=== PATIENT | female | born 1940 ===

== ENCOUNTER 2016-10-12 16:47 | Inpatient (IN) | payer MEDICARE ==
[2016-10-12] MEDS ORDERED: RX INFO: IV CONTRAST WAS GIVEN 1 EACH MISC MISCELLANE PRN (17:53)
[2016-10-12] MEDS ORDERED: methylPREDNISolone SOD SUCCI 125 MG/2 ML VIAL IV STA ×2 (17:53→19:57)
[2016-10-12] MEDS ORDERED: AZITHROMYCIN 500 MG in SODIUM CHLORIDE 0.9% 250 ML IVPB STA (17:55)
[2016-10-12] MEDS ORDERED: cefTRIAXone 2,000 MG in SODIUM CHLORIDE 0.9% 100 ML IVPB STA (17:55)
[2016-10-12 18:26] LABS: Basophils % (A) 0 %; CH 28.3; CHCM 31.7; Eosinophils % (A) 0 %; HCT 33.1 % (34.0-46.0); HGB 10.4 gm/dL (11.4-16.0); Luc # (Auto) 0.23; Luc % (Auto) 2; Lymphocytes # (A) 0.4 k/uL (1.0-4.8); Lymphocytes % (A) 3 %; MCH 28.2 pg (25.0-35.0); MCHC 31.5 g/dL (31.0-37.0); MCV 89.5 fL (80.0-100.0); Mean Platelet Volume 6.3; Monocytes # (A) 0.5 k/uL (0-1.0); Monocytes % (A) 3 %; Neutrophils # (A) 13.3 k/uL (1.3-7.7); Neutrophils % (A) 92 %; RDW 15.3 % (11.5-15.5); WBC 14.5 k/uL (3.8-10.6); WBC (Perox) 15.31
[2016-10-12 18:34] LABS: Anion Gap 12 mmol/L; Blood Urea Nitrogen 15 mg/dL (7-17); Calcium 9.7 mg/dL (8.4-10.2); Carbon Dioxide 25 mmol/L (22-30); Chloride 99 mmol/L (98-107); Glucose 107 mg/dL (74-99); Non-African American GFR(MDRD) >60 (>60 ml/min/1.73 sqM); Potassium 4.5 mmol/L (3.5-5.1); Sodium 136 mmol/L (137-145)
--- NOTE | 2016-10-12 19:49 | ED ---
URI HPI - General Chief Complaint: Upper Respiratory Infection Stated Complaint: cough, chest congestion Time Seen by Provider: 10/12/16 17:42 Source: patient Mode of arrival: wheelchair Limitations: no limitations - History of Present Illness Initial Comments: She has a history of lung cancer, she status post chemo and now radiation she was here yesterday stating that she has a fever been now she went home and called her doctor Dr. Taya Bain's office or history*practitioner 12 come to the ER she stated she been having a fever for the last few days off and on though her temperature here was normal is also check for the flu a and B yesterday which was negative she is not on any antibiotics right now according to the patient , no chest pain no pleuritic chest pain - Related Data Home Medications Medication Instructions Recorded Confirmed ALPRAZolam [Alprazolam] 0.5 mg PO TID PRN 04/21/16 10/12/16 Acetaminophen with Codeine 1 tab PO Q4-6H PRN 04/21/16 10/12/16 [Acetaminophen-Cod #3 Tablet] D-Methorphan/Acetamin/Doxylamn 15 - 30 ml PO Q4H PRN 10/12/16 10/12/16 [Vicks Nyquil Cold & Flu Liquid] Ibuprofen [Motrin] 200 - 400 mg PO Q6HR PRN 10/12/16 10/12/16 Oseltamivir [Tamiflu] 75 mg PO DAILY 10/12/16 10/12/16 Phenylephrine/Dm/Acetaminop/GG 15 - 30 ml PO Q4H PRN 10/12/16 10/12/16 [Vicks Dayquil Severe Cold-Flu] Allergies Allergy/AdvReac Type Severity Reaction Status Date / Time morphine AdvReac Hallucinati Verified 10/12/16 17:22 ons Review of Systems ROS Statement: Those systems with pertinent positive or pertinent negative responses have been documented in the HPI. ROS Other: All systems not noted in ROS Statement are negative. Past Medical History Past Medical History: Cancer Additional Past Medical History / Comment(s): Non-small cell lung cancer, metastatic post chemotherapy/radiation, completed end February 2015 chemotherapy end February 2016 History of Any Multi-Drug Resistant Organisms: None Reported Past Surgical History: Appendectomy, Hysterectomy, Tonsillectomy Additional Past Surgical History / Comment(s): bilateral masectomy Past Anesthesia/Blood Transfusion Reactions: No Reported Reaction Past Psychological History: Anxiety, Depression Additional Psychological History / Comment(s): r/t new diagnosis Smoking Status: Former smoker Past Alcohol Use History: None Reported Past Drug Use History: None Reported - Past Family History Father Additional Family Medical History / Comment(s): pacemaker triple bypass Mother Family Medical History: Cancer Additional Family Medical History / Comment(s): cervical and breast Daughter(s) Family Medical History: Cancer (thyroid cancer) Additional Family Medical History / Comment(s): cervicle cancer General Exam Limitations: no limitations Course Vital Signs 10/12/16 10/12/16 17:06 19:55 Temperature 98.8 F Pulse Rate 103 H 82 Respiratory 26 H 18 Rate Blood Pressure 128/69 122/58 O2 Sat by Pulse 95 96 Oximetry Medical Decision Making - Lab Data Result diagrams: 10/12/16 17:35 10/12/16 17:35 Lab Results 10/12/16 10/12/16 10/12/16 Range/Units 17:35 17:35 17:35 WBC 14.5 H (3.8-10.6) k/uL RBC 3.70 L (3.80-5.40) m/uL Hgb 10.4 L (11.4-16.0) gm/dL Hct 33.1 L (34.0-46.0) % MCV 89.5 (80.0-100.0) fL MCH 28.2 (25.0-35.0) pg MCHC 31.5 (31.0-37.0) g/dL RDW 15.3 (11.5-15.5) % Plt Count 429 (150-450) k/uL Neutrophils % 92 % Lymphocytes % 3 % Monocytes % 3 % Eosinophils % 0 % Basophils % 0 % Neutrophils # 13.3 H (1.3-7.7) k/uL Lymphocytes # 0.4 L (1.0-4.8) k/uL Monocytes # 0.5 (0-1.0) k/uL Eosinophils # 0.0 (0-0.7) k/uL Basophils # 0.0 (0-0.2) k/uL Sodium 136 L (137-145) mmol/L Potassium 4.5 (3.5-5.1) mmol/L Chloride 99 (98-107) mmol/L Carbon Dioxide 25 (22-30) mmol/L Anion Gap 12 mmol/L BUN 15 (7-17) mg/dL Creatinine 0.67 (0.52-1.04) mg/dL Est GFR (MDRD) Af Amer >60 (>60 ml/min/1.73 sqM) Est GFR (MDRD) Non-Af >60 (>60 ml/min/1.73 sqM) Glucose 107 H (74-99) mg/dL Plasma Lactic Acid Ralf (0.7-2.0) mmol/L Calcium 9.7 (8.4-10.2) mg/dL Influenza Type A RNA Not Detected (Not Detectd) Influenza Type B (PCR) Not Detected (Not Detectd) 10/12/16 Range/Units 17:35 WBC (3.8-10.6) k/uL RBC (3.80-5.40) m/uL Hgb (11.4-16.0) gm/dL Hct (34.0-46.0) % MCV (80.0-100.0) fL MCH (25.0-35.0) pg MCHC (31.0-37.0) g/dL RDW (11.5-15.5) % Plt Count (150-450) k/uL Neutrophils % % Lymphocytes % % Monocytes % % Eosinophils % % Basophils % % Neutrophils # (1.3-7.7) k/uL Lymphocytes # (1.0-4.8) k/uL Monocytes # (0-1.0) k/uL Eosinophils # (0-0.7) k/uL Basophils # (0-0.2) k/uL Sodium (137-145) mmol/L Potassium (3.5-5.1) mmol/L Chloride (98-107) mmol/L Carbon Dioxide (22-30) mmol/L Anion Gap mmol/L BUN (7-17) mg/dL Creatinine (0.52-1.04) mg/dL Est GFR (MDRD) Af Amer (>60 ml/min/1.73 sqM) Est GFR (MDRD) Non-Af (>60 ml/min/1.73 sqM) Glucose (74-99) mg/dL Plasma Lactic Acid Ralf 1.6 (0.7-2.0) mmol/L Calcium (8.4-10.2) mg/dL Influenza Type A RNA (Not Detectd) Influenza Type B (PCR) (Not Detectd) Disposition Clinical Impression: Fever, History of lung cancer Disposition: ADMITTED IP TO THIS HOSP Condition: Critical Referrals: Nnamdi Tam MD [Primary Care Provider] - 1-2 days
[2016-10-12] MEDS ORDERED: ACET/COD 300 MG/30 MG STARTER PACK 6 TAB BTL PO PRN (20:02)
--- NOTE | 2016-10-12 20:28 | CT ---
EXAMINATION TYPE: CT angio chest DATE OF EXAM: 10/12/2016 7:31 PM COMPARISON: Noncontrast CT Chest April 22, 2016 HISTORY: Shortness of breath and chest discomfort. History of lung cancer CT DLP: 136.1 mGycm Automated exposure control for dose reduction was used. CONTRAST: CTA scan of the thorax is performed with IV Contrast, patient injected with 100 mL of Omnipaque 350, pulmonary embolism protocol. . FINDINGS: The pulmonary arterial tree is widely patent without evidence of pulmonary embolism. Cavitary lesion in the right upper lobe is redemonstrated, most compatible with patient's history of lung carcinoma. There is bronchial wall thickening at the right hilum and extending towards the right upper lobe. Multiple pulmonary nodules are present in the left lower lobe, all have increased in vol ume by approximately 15% since the CT of April 2016. The other bilateral pulmonary nodules seen on t he prior study are similar in volume, and there are no definite new nodules. However, there is consolidation throughout the posterior segment of the right upper lobe with air bro nchograms, consistent with pneumonia - likely postobstructive pneumonia. Interstitial prominence is redemonstrated and has advanced, suggesting interstitial spread of carcino ma. There are coronary artery calcifications. Aorta has normal appearance. Right-sided pleural effusion is similar to the prior CT, as is the small pericardial effusion seen at that time. Left adrenal gland shows unchanged mild fullness. No focal skeletal lesions. IMPRESSION: 1. RIGHT UPPER LOBE POSTOBSTRUCTIVE PNEUMONIA. 2. NEGATIVE FOR PULMONARY EMBOLISM. 3. ADVANCING PRIMARY AND METASTATIC NEOPLASM.
[2016-10-12] MEDS: IPRATROPIUM-ALBUTEROL 3 ML NEB INHALATION PRN (20:37)
[2016-10-12] MEDS: BUDESONIDE 0.5 MG/2 ML NEBU INHALATION SCH (20:37)
[2016-10-12 22:39] VITALS: BMI 20.7
[2016-10-12] MEDS ORDERED: IV VANCOMYCIN PER PHARMACY 1 EACH MISC MISCELLANE PRN (22:52)
[2016-10-12] MEDS: ZOLPIDEM 5 MG TAB PO SCH (23:05)
[2016-10-12] MEDS: Acetaminophen-Codeine 300-30mg TAB PO PRN (23:37)
[2016-10-12] MEDS: PIPERACILLIN-TAZOBACTAM 3.375 GM in DEXTROSE/WATER 1 50ML.BAG IVPB SCH (23:55)
[2016-10-13] MEDS ORDERED: VANCOMYCIN 1,000 MG in SODIUM CHLORIDE 0.9% 250 ML IVPB SCH (04:00)
[2016-10-13] MEDS: BUDESONIDE 0.5 MG/2 ML NEBU INHALATION SCH ×2 (08:25→19:56)
[2016-10-13] MEDS: IPRATROPIUM-ALBUTEROL 3 ML NEB INHALATION PRN ×3 (08:25→19:56)
[2016-10-13] MEDS: PIPERACILLIN-TAZOBACTAM 3.375 GM in DEXTROSE/WATER 1 50ML.BAG IVPB SCH ×2 (08:35→17:21)
[2016-10-13] MEDS: DOCUSATE 100 MG CAP PO SCH ×2 (08:36→20:38)
[2016-10-13] MEDS: Acetaminophen-Codeine 300-30mg TAB PO PRN ×2 (08:42→19:35)
[2016-10-13 08:47] VITALS: RESP 16
[2016-10-13] MEDS ORDERED: OSELTAMIVIR 75 MG CAP PO SCH (09:00)
[2016-10-13] MEDS: ENOXAPARIN 30 MG/0.3 ML SYRINGE SQ SCH (09:29)
--- NOTE | 2016-10-13 14:13 | P.CNPUL ---
History of Present Illness Consult date: 10/13/16 Requesting physician: Salvador Holt Reason for consult: abnormal CXR/CT (Right upper lobe postobstructive pneumonia) Chief complaint: Fever, cough congestion History of present illness: This is a very pleasant 76-year-old female patient with a known history of previously diagnosed non-small cell lung cancer. This was initially diagnosed in October 2015 after being found to have a right upper lobe perihilar mass extending to the hilum encasing the right upper lobe bronchus. She had undergone bronchoscopy and biopsy by Dr. Cordova that did reveal adenocarcinoma. She was referred to Dr. Issac arias at [facility] but was deemed not a surgical candidate. She follows with Dr. Bain in this regard she is status post chemotherapy and 2 sessions of radiation. She is EGFR/ALK/ RES 1 mutation negative. Previous MRI showed no metastatic disease to the brain. Approximately 3 months ago follow-up CT scans revealed worsening metastatic disease in the lungs. She was subsequently started on Opdivo ( nivolumab) which she receives every other Sunday. She's had 7 sessions thus far and is due for an eighth session next week. She had been tolerating this quite well until recently. She developed fever, cough and congestion. She was seen at Dr. Bain's office on Sunday and was treated with a Z-Lenny and steroids. Unfortunately her temperature was up to 101.5 and she presented here to the emergency room yesterday. Her influenza screen was negative. She had been initiated on Tamiflu in the outpatient setting. She is currently afebrile. White count 14.5. He is maintaining good O2 saturations in the upper 90s on room air. CT angiogram ruled out pulmonary embolism. There was noted right upper lobe postobstructive pneumonia. There is also noted advancing primary and metastatic neoplasm. She is seen today 10/13/2016 in consultation on the regular medical floor. She is awake and alert in no acute distress. She states she is feeling quite a bit better today as compared to yesterday. She continues with a dry loose nonproductive cough. No fever, no chills or night sweats. Her appetite is good. No nausea, vomiting diarrhea. Review of Systems 14 point review of system was conducted. All negative other than as mentioned in the HPI. Past Medical History Past Medical History: Cancer, Pneumonia Additional Past Medical History / Comment(s): Non-small cell lung cancer, metastatic post chemotherapy/radiation, completed end of february 2015 chemotherapy end of february 2016,viral infection, radiation killed lung tissue and abscesses and infected right lung, right lung pneumothorax, breast cancer,was on tivo( cancer) History of Any Multi-Drug Resistant Organisms: None Reported Past Surgical History: Appendectomy, Hysterectomy, Tonsillectomy Additional Past Surgical History / Comment(s): bilateral masectomy Past Anesthesia/Blood Transfusion Reactions: No Reported Reaction Past Psychological History: Anxiety, Depression Additional Psychological History / Comment(s): r/t new diagnosis Smoking Status: Former smoker Past Alcohol Use History: None Reported Past Drug Use History: None Reported - Past Family History Father Additional Family Medical History / Comment(s): pacemaker triple bypass Mother Family Medical History: Cancer Additional Family Medical History / Comment(s): cervical and breast Daughter(s) Family Medical History: Cancer Additional Family Medical History / Comment(s): cervicle cancer Medications and Allergies Home Medications Medication Instructions Recorded Confirmed Type ALPRAZolam [Alprazolam] 0.5 mg PO TID PRN 04/21/16 10/12/16 History Acetaminophen with Codeine 1 tab PO Q4-6H PRN 04/21/16 10/12/16 History [Acetaminophen-Cod #3 Tablet] D-Methorphan/Acetamin/Doxylamn 15 - 30 ml PO Q4H PRN 10/12/16 10/12/16 History [Vicks Nyquil Cold & Flu Liquid] Ibuprofen [Motrin] 200 - 400 mg PO Q6HR PRN 10/12/16 10/12/16 History Oseltamivir [Tamiflu] 75 mg PO DAILY 10/12/16 10/12/16 History Phenylephrine/Dm/Acetaminop/GG 15 - 30 ml PO Q4H PRN 10/12/16 10/12/16 History [Vicks Dayquil Severe Cold-Flu] Allergies Allergy/AdvReac Type Severity Reaction Status Date / Time morphine AdvReac Hallucinati Verified 10/12/16 22:06 ons Physical Exam Vitals: Vital Signs Temp Pulse Pulse Resp BP BP Pulse Ox 10/13/16 12:49 90 10/13/16 12:39 94 10/13/16 08:38 88 10/13/16 08:25 88 10/13/16 07:00 97.8 F 116 H 16 128/75 97 10/12/16 21:41 97.9 F 107 H 20 168/79 97 10/12/16 20:47 96 10/12/16 20:46 20 10/12/16 20:43 98.7 F 10/12/16 20:37 96 10/12/16 20:36 88 18 137/67 96 Intake and Output 10/12/16 10/13/16 10/13/16 22:59 06:59 14:59 Intake Total 900 Balance 900 Intake: IV 550 Azithromycin 500 mg In 250 Sodium Chloride 0.9% 250 ml @ 125 mls/hr IVPB ONCE [facility] Rx#:[id number] Piperacillin-Tazobactam 3 50 .375 gm In Dextrose/Water 1 50ml.bag @ 12.5 mls/hr IVPB Q8HR [facility] Rx#: [id number] Vancomycin 1,000 mg In 250 Sodium Chloride 0.9% 250 ml @ 125 mls/hr IVPB Q24H [facility] Rx#:[id number] Oral 350 Other: Voiding Method Toilet Toilet # Voids 2 Weight 49.895 kg GENERAL EXAM: Alert, active, comfortable in no apparent distress. Somewhat cachectic. HEAD: Normocephalic. EYES: Normal reaction of pupils, equal size. NOSE: Clear with pink turbinates. THROAT: No erythema or exudates. NECK: No masses, no JVD. CHEST: Evidence of bilateral mastectomy. LUNGS: Equal air entry with few crackles in the right upper lobe. CVS: S1 and S2 normal with no audible murmurs, regular rhythm. ABDOMEN: No hepatosplenomegaly, normal bowel sounds, no guarding or rigidity. SPINE: No scoliosis or deformity SKIN: No rashes CENTRAL NERVOUS SYSTEM: No focal deficits, tone is normal in all 4 extremities. Extremities: There is no significant peripheral edema. No clubbing, no cyanosis. Peripheral pulses are intact. Results - Laboratory Findings CBC and BMP: 10/12/16 17:35 10/12/16 17:35 Assessment and Plan Plan: Impression: #1 Right upper lobe postobstructive pneumonia with febrile illness. #2 History of metastatic non-small cell lung cancer last adenocarcinoma with noted lesion in the right upper lobe. There is also increasing nodules in the left lung base. Failed previous chemotherapy/radiation therapy. Currently on nivolumab. #3 History of breast cancer status post bilateral mastectomy. Plan: The patient was seen and evaluated by Dr. Davenport. Her CAT scan and labs were reviewed. We do feel this is possibly recurrence of a post obstructive pneumonia. She is currently on antibiotics in the form of Zosyn and vancomycin. We'll continue with her Tamiflu. She is on Lovenox for DVT prophylaxis. We'll continue with Pulmicort inhalations twice a day along with DuoNeb inhalations as needed. Will increase her activity as tolerated. We'll continue to follow make further recommendations based on her clinical status.
--- NOTE | 2016-10-13 15:26 | P.CONS ---
History of Present Illness - Reason for Consult Consult date: 10/13/16 Lung cancer Requesting physician: Salvador Holt - Chief Complaint fever - History of Present Illness Evon is a very pleasant female pt of Dr. Bain who presented with progressive cough and dyspnea for about 4 months in Oct 2015. CXR on 2015 was suspicious for RUL lung mass, CT chest on 11/11/2015 revealed a large RUL perihilar mass extending from the hilum, encasing the right upper lobe bronchus, segmental pulmonary arterial branches as well as the interlobar pulmonary artery proximally, extending peripherally to pleural surface, 8.3 x 9.1cm, additional small, non specific 4-7mm scattered left lung nodules. Bronchoscopy on 11/22/2015 revealed collapse of RUL, biopsy adenocarcinoma of the lung. On 12/12/2015 staging PET/CT revealed suspicious uptake in the large RUL mass, right hilum, right pulmonary artery and uptake in mediastinal nodes, the 2 small left lower lobe lung nodules. She was evaluated by Dr Page, thoracic surgeon at [facility], and it was not felt that she was not a surgical candidate due to the tumor extending to SVC. EGFR/ALK/ROS-1 mutation were negative, 12/24/2015, brain MRI was negative for metastatic disease. She started concurrent radiation and chemotherapy with cisplatin/alimta on 2015. She completed radiation therapy on 02/21/2016. Repeat CT scan of chest on 03/07/2016 revealed cavitary changes in RUL mass, consistent with treatment effects,no progression. On 04/20/16,she developed RUL lung abscess which required prolonged course of IV antibiotics completed on . 06/09/2016 CT chest revealed stable RUL cavitary lesions, however, there was increase in size of multiple small RONAK nodules and new nodule in left lung. 06/25/2016 PET scan revealed evidence of disease progression. On 2015 she started nivolumab every 2 weeks. She has tolerated treatment very well , she had had 7 cycles, no uncontrolled side effects or hematological toxicities > 1. She was seen 10/11/16 for acute visit, she though she may have been exposed to influenza Sunday or Sunday by reports of illness among several individuals she was in contact with. Symptoms started 10/10, T max 101.8F which was treated with tylenol and nyquil, symptoms abated. She had generalized body aches, chills at the time of exam, fatigue, dry cough but feels congested, denied sore throat, ear pain, palpitations, nausea or vomiting, abd pain or bloating, dysuria, hematuria. Flu swab was obtained and pt sent home with tamiflu and instructions to alternate motrin and tylenol and for fevers. Pt fevers persisted so it was felt that she should come to the hospital for evaluation. When seen this AM states no fevers after being admitted, she feels good, eating and drinking, her voice is stronger, she is still SOB with activity and cough is occasional, no hemoptysis, no other c/o. Review of Systems All systems: negative Constitutional: Reports as per HPI Past Medical History Past Medical History: Cancer, Pneumonia Additional Past Medical History / Comment(s): Non-small cell lung cancer, metastatic post chemotherapy/radiation, completed end of february 2015 chemotherapy end of february 2016,viral infection, radiation killed lung tissue and abscesses and infected right lung, right lung pneumothorax, breast cancer,was on tivo( cancer) History of Any Multi-Drug Resistant Organisms: None Reported Past Surgical History: Appendectomy, Hysterectomy, Tonsillectomy Additional Past Surgical History / Comment(s): bilateral masectomy Past Anesthesia/Blood Transfusion Reactions: No Reported Reaction Past Psychological History: Anxiety, Depression Additional Psychological History / Comment(s): r/t new diagnosis Smoking Status: Former smoker Past Alcohol Use History: None Reported Past Drug Use History: None Reported - Past Family History Father Additional Family Medical History / Comment(s): pacemaker triple bypass Mother Family Medical History: Cancer Additional Family Medical History / Comment(s): cervical and breast Daughter(s) Family Medical History: Cancer Additional Family Medical History / Comment(s): cervicle cancer Medications and Allergies Home Medications Medication Instructions Recorded Confirmed Type ALPRAZolam [Alprazolam] 0.5 mg PO TID PRN 04/21/16 10/12/16 History Acetaminophen with Codeine 1 tab PO Q4-6H PRN 04/21/16 10/12/16 History [Acetaminophen-Cod #3 Tablet] D-Methorphan/Acetamin/Doxylamn 15 - 30 ml PO Q4H PRN 10/12/16 10/12/16 History [Vicks Nyquil Cold & Flu Liquid] Ibuprofen [Motrin] 200 - 400 mg PO Q6HR PRN 10/12/16 10/12/16 History Oseltamivir [Tamiflu] 75 mg PO DAILY 10/12/16 10/12/16 History Phenylephrine/Dm/Acetaminop/GG 15 - 30 ml PO Q4H PRN 10/12/16 10/12/16 History [Vicks Dayquil Severe Cold-Flu] Allergies Allergy/AdvReac Type Severity Reaction Status Date / Time morphine AdvReac Hallucinati Verified 10/12/16 22:06 ons Physical Exam Vitals: Vital Signs Temp Pulse Pulse Resp BP BP Pulse Ox 10/13/16 08:38 88 10/13/16 08:25 88 10/13/16 07:00 97.8 F 116 H 16 128/75 97 10/12/16 21:41 97.9 F 107 H 20 168/79 97 10/12/16 20:47 96 10/12/16 20:46 20 10/12/16 20:43 98.7 F 10/12/16 20:37 96 10/12/16 20:36 88 18 137/67 96 Intake and Output 10/12/16 10/13/16 10/13/16 22:59 06:59 14:59 Intake Total 900 Balance 900 Intake: IV 550 Azithromycin 500 mg In 250 Sodium Chloride 0.9% 250 ml @ 125 mls/hr IVPB ONCE [facility] Rx#:[id number] Piperacillin-Tazobactam 3 50 .375 gm In Dextrose/Water 1 50ml.bag @ 12.5 mls/hr IVPB Q8HR [facility] Rx#: [id number] Vancomycin 1,000 mg In 250 Sodium Chloride 0.9% 250 ml @ 125 mls/hr IVPB Q24H [facility] Rx#:[id number] Oral 350 Other: Voiding Method Toilet Toilet # Voids 2 Weight 49.895 kg - Constitutional General appearance: cooperative, no acute distress, thin - EENT Eyes: anicteric sclerae, normal appearance ENT: normal oropharynx - Neck Neck: no lymphadenopathy - Respiratory Respiratory: right: diminished (middle 1/3rd), bilateral: CTA - Cardiovascular Rhythm: regular Heart sounds: normal: S1, S2 leg Peripheral Edema: bilateral: None - Gastrointestinal General gastrointestinal: no absent bowel sounds, no decreased bowel sounds, no distended, no hepatomegaly, no hyperactive bowel sounds, normal bowel sounds, no organomegaly, no rigid, no scaphoid, soft, no splenomegaly, no tenderness, no umbilical hernia, no ventral hernia - Neurologic Neurologic: CNII-XII intact - Musculoskeletal Musculoskeletal: strength equal bilaterally - Psychiatric Psychiatric: A&O x's 3, appropriate affect, intact judgment & insight Results CBC & Chem 7: 10/12/16 17:35 10/12/16 17:35 CT scan - chest: report reviewed Assessment and Plan (1) Fever, unspecified Narrative/Plan: No fevers after admission. Pt has been seen and evaluated by Pulmonary, notes reviewed. She is being treated for post obstructive pneumonia, pt clinically doing better today. Status: Acute (2) Non-small cell cancer of right lung Narrative/Plan: Pt is s/p 7 cycles of nivolumab, she is due for treatment f/u imaging and it is scheduled for the . Did discuss the case with Dr. Bain, the CTA was compared to a CT done in April, pt had another scan in Oct at [facility], have contacted medical records and Radiology and requested comparison of Oct scan to current one, addendum will be added. Immunotherapy follow up imaging can be misleading and despite what may look like progression that may not always be the case, clinical evaluation of the pt is critical. It was felt pt had influenza-influenza A & B testing was negative- possibly post obstructive pneumonia. She is being treated with antiviral and is on abx with supportive respiratory meds and doing much better. Pt will have f/u with Dr. Bain to review and discuss f/u Tx imaging results after addendum. Status: Chronic Plan: Ok from a Hem/Onc standpoint for pt to be discharged in AM once cleared by Attending and Consulting Physicians
--- NOTE | 2016-10-13 18:23 | HP ---
DATE OF ADMISSION: 10/13/2016 CHIEF COMPLAINT: A 75-year-old white female with right upper lobe obstructive pneumonia. Fever, cough, congestion with a history of cancer being treated and poor immunosuppression. HISTORY OF PRESENT ILLNESS: This 76 -year-old white female with past medical history of non-small cell lung cancer diagnosed October 2005. She had a right upper lobe perihilar mass in the hilum encasing the right upper lobe bronchus. She sees Dr. Cordova for this. She had adenocarcinoma. She has been ( )denies surgery and she has been doing chemotherapy and radiation therapy. She is currently on immunotherapy as she failed radiation therapy and chemotherapy, she has ( ) which is immunotherapy every other Sunday, seven sessions so far. She has tolerated this until just recently, she had fever cough, congestion, failing outpatient treatment with Z-Lenny and steroids. Temperature went up to 101.5 and she was admitted to the hospital and placed, admitted with pneumonia. Started on IV antibiotics. Her white count was up to 14.5. She is feeling better. She wants to go home soon. Fourteen-point review of systems negative except for as mentioned in HPI. PAST MEDICAL HISTORY: Non-small cell right upper lobe cancer for 3 months and possibly metastatic post chemotherapy and radiation treatment, currently on immunotherapy, right lung pneumothorax. Breast cancer with ( ) and now is in remission. SURGICAL HISTORY: Appendectomy, hysterectomy, tonsillectomy. Bilateral mastectomy, anxiety, depression. Former smoker. FAMILY HISTORY: Father with pacemaker, triple bypass; mother with cancer of the cervix and breast, daughter with cervical cancer. Home medications: 1. Tylenol #3. 2. Motrin. 3. Tamiflu. ALLERGIES: MORPHINE. VITAL SIGNS: Pulse in the 90s, pulse is 107 to 160. Temperature 97.8, blood pressure 120s over 70s, O2 sat 97%. ENDOCRINE: She is thin, cachectic. PSYCH: She is sat up in bed putting on her makeup, giving appropriate answers. NEUROLOGIC: Cranial nerves are intact. PSYCH: Fair mood and affect. HEART: S1, S2. LUNGS: Equal air flow. A few crackles right upper lobe. Chest bilateral mastectomy. NECK: No JVD. White count 14.5, hemoglobin 10.4, sodium 135, potassium 4.5, platelets 429. ASSESSMENT: 1. Right upper lobe postobstructive pneumonia with fevers. 2. Sepsis secondary to above. 3. Metastatic non-small cell cancer. 4. Possible nodules in the left lung base failed previous treatment. Currently on immunotherapy and ( ). 5. History of breast cancer. 6. She is on Zosyn and vancomycin and Tamiflu for possible flu. 7. Lovenox for DVT prophylaxis. Please monitor her pulmonary status over the next few days and white count. PROGNOSIS: Guarded.
--- NOTE | 2016-10-13 18:54 | CONS ---
DATE OF CONSULTATION: 10/13/2016 REASON FOR CONSULTATION: Postobstructive pneumonia. HISTORY OF PRESENT ILLNESS: The patient is a 76-year-old female with a past medical history significant for adenocarcinoma right upper lobe for which the patient is following with Dr. Bain and is on chemotherapy. The patient started running a fever over the weekend along with cough and congestion for which the patient has been evaluated by Dr. Bain on Sunday the october. The patient did have a nasal swab for influenza and was started on Tamiflu. Apparently the patient was also given Z-Lenny and steroids. She was advised if any more fever to go to the ER. The patient did spike a fever of 101.5 degrees Fahrenheit. The patient continue to have a cough and congestion, but is mostly dry in nature. Not able to bring any sputum up. Denies any chest pain. Denies any urinary symptoms. No nausea or vomiting. No abdominal pain or any diarrhea. Subsequently evaluated by the ER physician. The patient did have CT angiogram that was negative for PE. However, did showed right upper lobe postobstructive pneumonia. The patient will be started on Zosyn and vancomycin and admitted to the hospital. I was asked to see the patient for further recommendation regarding antibiotic therapy. Since the patient has been in the hospital, no fever has been recorded. She did have elevated white count of 14.5 as of yesterday and influenza was negative. The patient already feeling better and is talking about going home. REVIEW OF SYSTEMS: CONSTITUTIONAL: Positive for weakness along with a fever. EYES: No complaint. HEENT: No complaint. RESPIRATORY: As per HPI. CARDIOVASCULAR: No complaint. GENITOURINARY: No complaint. MUSCULOSKELETAL: No complaint. INTEGUMENTARY: No complaint. PSYCHOLOGICAL: No complaint. ENDOCRINE: No complaint. NEUROLOGIC: No complaint. Past medical history significant for non-small lung cancer and did have a history of postobstructive pneumonia, breast cancer. PAST SURGICAL HISTORY: Appendectomy, hysterectomy and tonsillectomy, bilateral mastectomy. SOCIAL HISTORY: Remote history of smoking. No drinking or drug use. FAMILY HISTORY: Father had history of triple bypass. Mother with history of cervical and breast cancer. Daughter with history of cervical cancer. ALLERGIES: Morphine. MEDICATIONS: Currently include the patient is on: 1. Tylenol. 2. DuoNeb. 3. Xanax. 4. Pulmicort. 5. Colace. 6. Lovenox. 7. Tamiflu. 8. Piptazobactam. 9. Vancomycin. On examination, blood pressure is 145/57, pulse of 105, temperature 97.7. She is 97% on room air. General description is an elderly female lying in bed in no distress. No tachypnea or accessory muscles of respiration use. HEENT examination, no pallor or scleral icterus. Oral mucous membranes dry. NECK: Trachea central. There is no thyromegaly. LUNGS: Unlabored breathing. Some coarse breath sounds at right base. No wheeze. HEART: S1, S2. Regular rate and rhythm. ABDOMEN: Soft, no tenderness. EXTREMITIES: No edema of feet. SKIN EXAMINATION: No rash or mass palpable. NEUROLOGICAL: The patient is awake, alert, oriented x3. Mood and affect normal. LABS: Hemoglobin is 10.4, white count of 14.5 with a BUN of 15, creatinine 0.67. Blood cultures obtained, currently pending. Sputum has been collected. DIAGNOSTIC IMPRESSION AND PLAN: Patient admitted to hospital with fever, congestion and cough. The patient did have a history of non-small cell lung cancer now with evidence of postobstructive pneumonia which usually polymicrobial infection including both aerobes and anaerobes. The patient has been on outpatient Zithromax, failing the outpatient. Influenza PCR was negative. PLAN: 1. Obtain sputum for gram stain culture and sensitivity. 2. Discontinue Tamiflu as the influenza PCR was negative making it to be less likely influenza. 3. Continue the patient on vancomycin, pharmacy to dose with a target of 15 along with Zosyn while waiting for the culture to finalize. 4. Depending upon the clinical response as well as cultures, we will adjust antibiotic. Thank you for this consultation. We will follow this patient along with you. CHERISE
[2016-10-13] MEDS: VANCOMYCIN 750 MG in SODIUM CHLORIDE 0.9% 250 ML IVPB SCH (21:32)
[2016-10-13] MEDS: ZOLPIDEM 5 MG TAB PO SCH (21:38)
[2016-10-14] MEDS: PIPERACILLIN-TAZOBACTAM 3.375 GM in DEXTROSE/WATER 1 50ML.BAG IVPB SCH ×4 (02:46→23:50)
[2016-10-14 07:01] LABS: Basophils % (A) 0 %; CH 28.3; CHCM 31.5; Eosinophils % (A) 0 %; HCT 30.9 % (34.0-46.0); HDW 2.14; HGB 9.8 gm/dL (11.4-16.0); Luc # (Auto) 0.16; Luc % (Auto) 1; Lymphocytes # (A) 0.6 k/uL (1.0-4.8); Lymphocytes % (A) 4 %; MCH 28.6 pg (25.0-35.0); MCHC 31.7 g/dL (31.0-37.0); MCV 90.2 fL (80.0-100.0); Mean Platelet Volume 6.4; Monocytes # (A) 0.5 k/uL (0-1.0); Monocytes % (A) 4 %; Neutrophils # (A) 12.6 k/uL (1.3-7.7); Neutrophils % (A) 91 %; RBC 3.43 m/uL (3.80-5.40); RDW 15.4 % (11.5-15.5); WBC 13.8 k/uL (3.8-10.6); WBC (Perox) 14.62
[2016-10-14 07:32] LABS: ALT 33 U/L (9-52); AST 24 U/L (14-36); Alkaline Phosphatase 147 U/L (38-126); Anion Gap 13 mmol/L; Blood Urea Nitrogen 24 mg/dL (7-17); Carbon Dioxide 24 mmol/L (22-30); Chloride 106 mmol/L (98-107); Glucose 94 mg/dL (74-99); Non-African American GFR(MDRD) >60 (>60 ml/min/1.73 sqM); Potassium 3.5 mmol/L (3.5-5.1); Sodium 143 mmol/L (137-145); Total Bilirubin 0.4 mg/dL (0.2-1.3); Total Protein 6.4 g/dL (6.3-8.2)
[2016-10-14] MEDS: Acetaminophen-Codeine 300-30mg TAB PO PRN ×2 (08:16→18:53)
[2016-10-14] MEDS: DOCUSATE 100 MG CAP PO SCH ×2 (08:17→20:51)
[2016-10-14] MEDS: ENOXAPARIN 30 MG/0.3 ML SYRINGE SQ SCH (08:17)
[2016-10-14] MEDS: BUDESONIDE 0.5 MG/2 ML NEBU INHALATION SCH ×2 (09:22→20:26)
[2016-10-14] MEDS: IPRATROPIUM-ALBUTEROL 3 ML NEB INHALATION PRN ×4 (09:22→20:26)
[2016-10-14] MEDS: ALPRAZolam 0.5 MG TAB PO PRN ×2 (11:18→18:53)
[2016-10-14] MEDS: VANCOMYCIN 750 MG in SODIUM CHLORIDE 0.9% 250 ML IVPB SCH (12:08)
--- NOTE | 2016-10-14 12:32 | P.PN ---
Subjective Principal diagnosis: Right upper lobe postobstructive pneumonia and lung cancer. This is a very pleasant 76-year-old female patient with a known history of previously diagnosed non-small cell lung cancer. This was initially diagnosed in October 2015 after being found to have a right upper lobe perihilar mass extending to the hilum encasing the right upper lobe bronchus. She had undergone bronchoscopy and biopsy by Dr. Cordova that did reveal adenocarcinoma. She was referred to Dr. Issac arias at [facility] but was deemed not a surgical candidate. She follows with Dr. Bain in this regard she is status post chemotherapy and 2 sessions of radiation. She is EGFR/ALK/ RES 1 mutation negative. Previous MRI showed no metastatic disease to the brain. Approximately 3 months ago follow-up CT scans revealed worsening metastatic disease in the lungs. She was subsequently started on Opdivo ( nivolumab) which she receives every other Sunday. She's had 7 sessions thus far and is due for an eighth session next week. She had been tolerating this quite well until recently. She developed fever, cough and congestion. She was seen at Dr. Bain's office on Sunday and was treated with a Z-Lenny and steroids. Unfortunately her temperature was up to 101.5 and she presented here to the emergency room yesterday. Her influenza screen was negative. She had been initiated on Tamiflu in the outpatient setting. She is currently afebrile. White count 14.5. He is maintaining good O2 saturations in the upper 90s on room air. CT angiogram ruled out pulmonary embolism. There was noted right upper lobe postobstructive pneumonia. There is also noted advancing primary and metastatic neoplasm. She is seen today 10/13/2016 in consultation on the regular medical floor. She is awake and alert in no acute distress. She states she is feeling quite a bit better today as compared to yesterday. She continues with a dry loose nonproductive cough. No fever, no chills or night sweats. Her appetite is good. No nausea, vomiting diarrhea. Reevaluated today on 10/14/2016, patient is requesting to be discharged home, and I told her today that it is up to the infectious disease specialist to clear her as long as he feels he can switch her antibiotics to oral antibiotics , and could be managed on outpatient basis. Patient feels better, denies any shortness of breath, she is afebrile, vital signs are stable. Her CBC showed WBC count of 13.8 hemoglobin is 9.8 basic metabolic profile is normal renal profile is normal Objective - Vital Signs Vital signs: Vital Signs Temp 98.0 F 10/14/16 07:00 Pulse 96 10/14/16 12:22 Resp 16 10/14/16 08:00 BP 144/70 10/14/16 07:00 Pulse Ox 98 10/14/16 07:00 Intake & Output 10/13/16 10/14/16 10/14/16 18:59 06:59 18:59 Intake Total 490 Balance 490 Weight 49.895 kg Intake: IV 50 Piperacillin-Tazobactam 3 50 .375 gm In Dextrose/Water 1 50ml.bag @ 12.5 mls/hr IVPB Q8HR [facility] Rx#: [id number] Oral 440 Other: Voiding Method Toilet Toilet Toilet # Voids 2 2 - Exam GENERAL EXAM: Alert, active, comfortable in no apparent distress. Somewhat cachectic. HEAD: Normocephalic. EYES: Normal reaction of pupils, equal size. NOSE: Clear with pink turbinates. THROAT: No erythema or exudates. NECK: No masses, no JVD. CHEST: Evidence of bilateral mastectomy. LUNGS: Equal air entry with few crackles in the right upper lobe. CVS: S1 and S2 normal with no audible murmurs, regular rhythm. ABDOMEN: No hepatosplenomegaly, normal bowel sounds, no guarding or rigidity. SPINE: No scoliosis or deformity SKIN: No rashes CENTRAL NERVOUS SYSTEM: No focal deficits, tone is normal in all 4 extremities. Extremities: There is no significant peripheral edema. No clubbing, no cyanosis. Peripheral pulses are intact. - Labs CBC & Chem 7: 10/14/16 06:33 10/14/16 06:33 Labs: Abnormal Lab Results - Last 24 Hours (Table) 10/14/16 10/14/16 Range/Units 06:33 06:33 WBC 13.8 H (3.8-10.6) k/uL RBC 3.43 L (3.80-5.40) m/uL Hgb 9.8 L (11.4-16.0) gm/dL Hct 30.9 L (34.0-46.0) % Plt Count 468 H (150-450) k/uL Neutrophils # 12.6 H (1.3-7.7) k/uL Lymphocytes # 0.6 L (1.0-4.8) k/uL BUN 24 H (7-17) mg/dL Alkaline Phosphatase 147 H (38-126) U/L Albumin 3.2 L (3.5-5.0) g/dL Microbiology - Last 24 Hours (Table) 10/13/16 17:00 Gram Stain - Preliminary Sputum Sputum Culture - Preliminary Assessment and Plan Plan: #1 Right upper lobe postobstructive pneumonia with febrile illness. #2 History of metastatic non-small cell lung cancer last adenocarcinoma with noted lesion in the right upper lobe. There is also increasing nodules in the left lung base. Failed previous chemotherapy/radiation therapy. Currently on nivolumab. #3 History of breast cancer status post bilateral mastectomy. Recommendation: Patient could be discharged as long as the infectious disease specialist on the case feels comfortable with oral antibiotics on outpatient basis. And the patient will have to follow-up with Dr. Cordova in the next few days postdischarge. Time with Patient: Less than 30
[2016-10-14] MEDS: ZOLPIDEM 5 MG TAB PO SCH (20:51)
[2016-10-15] MEDS ORDERED: VANCOMYCIN TROUGH DUE 1 EACH MISC MISCELLANE ONE (03:00)
[2016-10-15] MEDS: VANCOMYCIN 750 MG in SODIUM CHLORIDE 0.9% 250 ML IVPB SCH (04:02)
--- NOTE | 2016-10-15 08:04 | PN ---
DATE OF SERVICE: 10/14/2016 Reason for followup is postobstructive pneumonia. INTERVAL HISTORY: The patient is afebrile. However, breathing has improved. Still has cough, but improved with decreased intensity. Denies any chest pain. No abdominal pain. No nausea, vomiting or any diarrhea. On examination, blood pressure 145/70 with a pulse of 94, temperature 97.9. She is 98% on room air. General description is an elderly female up in the bed in no distress. RESPIRATORY SYSTEM: Unlabored breathing. Some decreased breath sounds in the right base. No wheeze. HEART: S1, S2. Regular rate and rhythm. ABDOMEN: Soft, no tenderness. LABS: Hemoglobin is 9.8, white count 13.8 with a BUN of 24, creatinine 0.72. Blood cultures have been negative so far. Sputum culture is currently pending. DIAGNOSTIC IMPRESSION AND PLAN: Patient with likely postobstructive pneumonia in patient who did have history of underlying non-small cell lung cancer. Patient to continue Zosyn and Vanco while waiting for the sputum culture to finalize to determine discharge antibiotics. Continue supportive care.
[2016-10-15] MEDS: DOCUSATE 100 MG CAP PO SCH (08:26)
[2016-10-15] MEDS: PIPERACILLIN-TAZOBACTAM 3.375 GM in DEXTROSE/WATER 1 50ML.BAG IVPB SCH ×2 (08:26→16:32)
[2016-10-15] MEDS: Acetaminophen-Codeine 300-30mg TAB PO PRN ×2 (08:26→16:11)
[2016-10-15] MEDS: ENOXAPARIN 30 MG/0.3 ML SYRINGE SQ SCH (08:27)
[2016-10-15] MEDS: BUDESONIDE 0.5 MG/2 ML NEBU INHALATION SCH (08:27)
[2016-10-15] MEDS: IPRATROPIUM-ALBUTEROL 3 ML NEB INHALATION PRN ×3 (08:27→15:30)
[2016-10-15] MEDS: ALPRAZolam 0.5 MG TAB PO PRN ×2 (08:56→16:11)
[2016-10-15] MEDS ORDERED: VANCOMYCIN 1,000 MG in SODIUM CHLORIDE 0.9% 250 ML IVPB SCH (14:00)
[2016-10-15 15:37] VITALS: BP 141/67; TEMP 97.5
[2016-10-15 15:43] VITALS: PULSE 90
--- NOTE | 2016-10-15 18:25 | PN ---
DATE OF SERVICE: 10/14/2016 SUBJECTIVE: This 76-year-old white female with postobstructive pneumonia. This is a white female who states she wants to go home. She states her updraft treatments have helped her. She wants an updraft treatment, nebulizer at home. Waiting for culture of the pulmonary sputum before she can go home and cleared by infectious disease. This was hemstitcher recommendations. Blood pressure 140s over 70, pulse 94, temperature 97.9. 98% on room air. CARDIOVASCULAR: S1, S2. LUNGS: Scattered wheeze. HEMATOLOGIC: Negative Homans. PSYCHIATRIC: Fair mood and affect. White count is 13.8, hemoglobin 9.8, BUN 24, creatinine 0.72. Sputum pending. ASSESSMENT: Postobstructive pneumonia with the patient with advancing non-small cell lung cancer, continue with Zosyn and Vanco until sputum cultures are back and she will be sent home. She will be able to go home in stable condition. Follow up as an outpatient.
--- NOTE | 2016-10-15 19:34 | DS ---
DATE OF ADMISSION: 10/13/2016 DATE OF DISCHARGE: 10/15/2016 DISCHARGE MEDICATIONS: 1. She takes alprazolam 0.5 t.i.d. p.r.n. 2. Augmentin 875/125 1 every 12 hours. 3. Take updrafts or Duoneb 3 mL q.i.d. 4. Pulmicort 0.5 t.i.d. 5. Xanax 0.5 t.i.d. CONDITION: Stable. PROGNOSIS: Guarded as she has history of lung cancer. Cleared by infectious disease and pulmonology. HOSPITAL COURSE OF EVENTS: This is a white female admitted for acute respiratory distress. CT was done on admission, which showed a right upper lobe postobstructive pneumonia, advanced primary metastatic neoplasm. She was treated with IV antibiotics, IV steroids and updraft treatments as well as albuterol, Atrovent and Pulmicort. The patient will follow up with her lung cancer doctor, continue on updraft treatments with DuoNeb t.i.d. A script was given and nebulizer was given. Antibiotics per Dr. Hercules will include Augmentin 875 b.i.d.
[2016-10-16] MEDS ORDERED: ENOXAPARIN 40 MG/0.4 ML SYRINGE SQ SCH (09:00)
== END 2016-10-15 16:57 | disposition home or self-care (01) | DRG 871 ==
LOC: EC 16:47 → 5MS5E 19:57 → OBSVTOIN 10-13 14:51
PROVIDERS: ADMIT Family Medicine; ATTEND Family Medicine
DX: A41.9 Sepsis, unspecified organism (principal); J18.9 Pneumonia, unspecified organism; C78.00 Secondary malignant neoplasm of unspecified lung; C34.11 Malignant neoplasm of upper lobe, right bronchus or lung; E11.9 Type 2 diabetes mellitus without complications; Z85.3 Personal history of malignant neoplasm of breast; Z87.891 Personal history of nicotine dependence; Z90.13 Acquired absence of bilateral breasts and nipples; Z92.21 Personal history of antineoplastic chemotherapy; Z92.3 Personal history of irradiation; Z79.1 Long term (current) use of non-steroidal anti-inflammatories (NSAID); Z79.899 Other long term (current) drug therapy; Z88.5 Allergy status to narcotic agent
CPT/HCPCS: 36415; 71275; 80048; 80053; 80202; 83605; 85025; 87040; 87070; 87086; 87205; 87502; 94640; 96365; 96366; 96367; 96372; 96375; 96376; 99285

== ENCOUNTER → 2016-11-25 | Outpatient (CLI) | payer MEDICARE ==
--- NOTE | 2016-11-25 08:06 | MR ---
EXAMINATION TYPE: MR brain wo/w con DATE OF EXAM: 11/25/2016 7:51 AM COMPARISON: NONE HISTORY: Dizziness, headaches, CA lung, mets TECHNIQUE: Multiplanar, multiecho imaging of the brain was obtained with and without intravenous adm inistration of 11 mL intravenous MultiHance. FINDINGS: There are generalized changes of sulcal prominence and ventriculomegaly, compatible with mi ld atrophic change. There is mild mucoperiosteal thickening involving the left maxillary sinus. Midline structures are unremarkable. There is a normal craniocervical junction. Echoplanar diffusion imaging fails to demonstrate any areas of restricted diffusion. Vascular flow voids are normal. Both orbits are normal. There is no evidence of a CP angle mass lesion. There are multiple enhancing lesions throughout the cerebral hemispheres. There is a 1.9 cm lesion in the posterior right occipital lobe. There is a 2 cm lesion in the posterior left occipital region. T here is a second 11 mm lesion in the posterior left occipital region. There is a 1.2 cm lesion in the right frontal lobe. There is a 1.4 cm lesion in the posterior right parietal lobe and a parafalcine location. There is diffuse surrounding vasogenic edema. There is no mass effect, midline shift or int racranial blood. IMPRESSION: 1. ATROPHIC CHANGE. 2. MULTIPLE CEREBRAL METASTASES.
== END | disposition home or self-care (01) ==
LOC: RADMRIMAIN 07:06
PROVIDERS: ATTEND Internal Medicine Hematology & Oncology
DX: C79.31 Secondary malignant neoplasm of brain (principal); C34.90 Malignant neoplasm of unspecified part of unspecified bronchus or lung; G31.9 Degenerative disease of nervous system, unspecified
CPT/HCPCS: 70553; A9577

== ENCOUNTER → 2017-02-05 | Outpatient (CLI) | payer MEDICARE ==
--- NOTE | 2017-02-05 13:29 | MR ---
EXAMINATION TYPE: MR brain wo/w con DATE OF EXAM: 02/05/2017 COMPARISON: Prior MRI brain November 25, 2016. HISTORY: secondary malignant neoplasm of brain per order, history of lung cancer. Progress study. TECHNIQUE: Multiplanar, multisequence images of the brain and brainstem is performed without and with IV contras t, utilizing 13 mL intravenous MultiHance . FINDINGS: Diffusion weighted images demonstrate no evidence of a recent infarct or other diffusion ab normality. There is no worrisome extra-axial fluid collection. There is ventricular and sulcal promi nence consistent with diffuse age-related cerebral atrophy. Midline structures demonstrate normal morphology. The craniocervical junction appears within normal limits. Post contrast images redemonstrate several heterogeneous rim enhancing intraparenchymal masses. 5 dis tinct lesions are identified on current study. Lesion left occipital lobe on axial image 46 and sagittal image 37 measures 9 mm on long axis current study versus 12 mm prior studies sagittal image 76. Lesion just inferior and medial to this left occipital lobe abutting posterior interhemispheric fissu re measures 14 mm on long axis current study axial image 38 and sagittal image 39 versus 15 mm prior study axial image 15. Lesion high right parietal lobe measures 13 mm on long axis axial image 65 and sagittal image 40 vers us 16 mm on long axis prior study sagittal image 81. Lesion in inferior right occipital lobe abutting tentorium cerebelli measures 14 mm on long axis axia l image 29 versus 19 mm on long axis prior study image 12. Lesion right frontal lobe measures 9 mm on long axis axial image 44 and sagittal image 55 versus 13 m m on prior study sagittal image 108. There is redemonstration of surrounding vasogenic edema of all lesions felt grossly stable. No midlin e shift is seen. No new enhancing lesions are evident. There are additional mild scattered foci of T2 hyperintensity in the periventricular and deep white m atter felt to reflect product of mild chronic small vessel ischemic change in patient of this age. The dural venous sinuses appear patent. The visualized sinuses are clear and the globes are intact. 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 All lesions identified slightly diminished in size from prior exam. No new lesions are seen. RECIST CRITERIA: STABLE DISEASE
== END | disposition home or self-care (01) ==
LOC: RADMRIMAIN 11:55
PROVIDERS: ATTEND Radiology Radiation Oncology
DX: C79.31 Secondary malignant neoplasm of brain (principal); C71.9 Malignant neoplasm of brain, unspecified
CPT/HCPCS: 70553; A9577

== ENCOUNTER 2017-03-19 20:29 | Inpatient (IN) | payer MEDICARE ==
[2017-03-19] MEDS ORDERED: SODIUM CHLORIDE 0.9% 1,000 ML IV STA (21:14)
[2017-03-19] MEDS: SODIUM CHLORIDE 0.9% 1,000 ML IV STA (21:45)
--- NOTE | 2017-03-19 22:00 | XR ---
EXAMINATION TYPE: XR chest 2V DATE OF EXAM: 03/19/2017 COMPARISON: 05/18/2016 HISTORY: Fever TECHNIQUE: Frontal and lateral views of the chest are obtained. FINDINGS: There is a large area of consolidation in the right upper lobe. There is a 3 cm rounded ma sslike density in the left lower lobe. There is no heart failure. Thoracic aorta is atheromatous. The re is no pleural effusion. IMPRESSION: Increasing consolidation in the right upper lobe and pleural thickening. Left lower lobe mass. Densities are increased compared to last exam and consistent with progression of tumor. No hea rt failure.
--- NOTE | 2017-03-19 22:16 | ED ---
Fever HPI - General Chief Complaint: Fever Stated Complaint: Fever Time Seen by Provider: 03/19/17 21:01 Source: patient, RN notes reviewed, old records reviewed Mode of arrival: wheelchair Limitations: no limitations - History of Present Illness Initial Comments: 77-year-old female presents emergency Department chief complaint of fever for the past afternoon. She does have a history of lung cancer and brain cancer and is currently being treated with Opdivo. Patient reports that she's been admitted in the past for an infection. She reports that she's had an increased cough all day today. She denies any nausea or vomiting. She denies any other associated symptoms besides the consistent chest pain that she always has an increased cough. Patient reports that she did take some Motrin at 11:30. She called her primary care doctor then told her to come the emergency department for concern for infectious cause of the coughing. - Related Data Home Medications Medication Instructions Recorded Confirmed ALPRAZolam [Alprazolam] 0.5 mg PO TID PRN 04/21/16 03/19/17 Acetaminophen with Codeine 1 tab PO Q4-6H PRN 04/21/16 03/19/17 [Acetaminophen-Cod #3 Tablet] Ibuprofen [Motrin] 200 - 400 mg PO Q6HR PRN 10/12/16 03/19/17 Allergies Allergy/AdvReac Type Severity Reaction Status Date / Time morphine AdvReac Hallucinati Verified 03/19/17 21:24 ons Review of Systems ROS Statement: Those systems with pertinent positive or pertinent negative responses have been documented in the HPI. ROS Other: All systems not noted in ROS Statement are negative. Past Medical History Past Medical History: Cancer, Pneumonia Additional Past Medical History / Comment(s): Non-small cell lung cancer, metastatic post chemotherapy/radiation, completed end of february 2015 chemotherapy end of february 2016,viral infection, radiation killed lung tissue and abscesses and infected right lung, right lung pneumothorax, breast cancer,was on tivo( cancer) History of Any Multi-Drug Resistant Organisms: None Reported Past Surgical History: Appendectomy, Hysterectomy, Tonsillectomy Additional Past Surgical History / Comment(s): bilateral masectomy Past Anesthesia/Blood Transfusion Reactions: No Reported Reaction Past Psychological History: Anxiety, Depression Smoking Status: Former smoker Past Alcohol Use History: None Reported Past Drug Use History: None Reported - Past Family History Father Additional Family Medical History / Comment(s): pacemaker triple bypass Mother Family Medical History: Cancer Additional Family Medical History / Comment(s): cervical and breast Daughter(s) Family Medical History: Cancer Additional Family Medical History / Comment(s): cervicle cancer General Exam - General Exam Comments Initial Comments: 77-year-old female. No acute distress. Limitations: no limitations General appearance: alert, in no apparent distress Head exam: Present: atraumatic, normocephalic, normal inspection Eye exam: Present: normal appearance, PERRL, EOMI. Absent: scleral icterus, conjunctival injection, periorbital swelling ENT exam: Present: normal exam, mucous membranes moist Neck exam: Present: normal inspection. Absent: tenderness, meningismus, lymphadenopathy Respiratory exam: Present: wheezes (Mild wheezing bilaterally.), other (As active cough.). Absent: normal lung sounds bilaterally, respiratory distress, rales, rhonchi, stridor Cardiovascular Exam: Present: regular rate, normal rhythm, normal heart sounds. Absent: systolic murmur, diastolic murmur, rubs, gallop, clicks GI/Abdominal exam: Present: soft, normal bowel sounds. Absent: distended, tenderness, guarding, rebound, rigid Extremities exam: Present: normal inspection, full ROM, normal capillary refill. Absent: tenderness, pedal edema, joint swelling, calf tenderness Back exam: Present: normal inspection Neurological exam: Present: alert, oriented X3, CN II-XII intact Psychiatric exam: Present: normal affect, normal mood Skin exam: Present: warm, dry, intact, normal color, other (Patient has some lymphadenopathy over her forearms.). Absent: rash Course Vital Signs 03/19/17 20:42 Temperature 98.3 F Pulse Rate 92 Respiratory 18 Rate Blood Pressure 142/61 O2 Sat by Pulse 95 Oximetry Medical Decision Making - Medical Decision Making 77-year-old female presents emergency Department chief complaint of fever for the past afternoon. She does have a history of lung cancer and brain cancer and is currently being treated with albuterol. Patient reports that she's been admitted in the past for an infection. She reports that she's had an increased cough all day today. Chest x-ray was reviewed and shows Increasing consolidation in the right upper lobe and pleural thickening. Left lower lobe mass. Densities or increased compared to last exam inconsistent with progression of tumor. No heart failure. Patient's lab work was reviewed and shows evidence of leukocytosis. Patient will be admitted with consult her oncologist and started on antibiotics and breathing treatment for pneumonias. Patient agrees to admission. Discussed this case with Dr. Choi and he will discuss it with Dr. Guerra in the morning. - Lab Data Result diagrams: 03/19/17 21:40 03/19/17 21:40 Lab Results 03/19/17 03/19/17 03/19/17 Range/Units 21:40 21:40 21:40 WBC 14.5 H (3.8-10.6) k/uL RBC 3.81 (3.80-5.40) m/uL Hgb 11.8 (11.4-16.0) gm/dL Hct 35.2 (34.0-46.0) % MCV 92.4 (80.0-100.0) fL MCH 30.9 (25.0-35.0) pg MCHC 33.4 (31.0-37.0) g/dL RDW 15.6 H (11.5-15.5) % Plt Count 456 H (150-450) k/uL Neutrophils % 91 % Lymphocytes % 3 % Monocytes % 4 % Eosinophils % 1 % Basophils % 0 % Neutrophils # 13.1 H (1.3-7.7) k/uL Lymphocytes # 0.5 L (1.0-4.8) k/uL Monocytes # 0.6 (0-1.0) k/uL Eosinophils # 0.2 (0-0.7) k/uL Basophils # 0.0 (0-0.2) k/uL PT (9.0-12.0) sec INR (<1.2) APTT (22.0-30.0) sec Sodium 135 L (137-145) mmol/L Potassium 3.9 (3.5-5.1) mmol/L Chloride 99 (98-107) mmol/L Carbon Dioxide 27 (22-30) mmol/L Anion Gap 9 mmol/L BUN 13 (7-17) mg/dL Creatinine 0.67 (0.52-1.04) mg/dL Est GFR (MDRD) Af Amer >60 (>60 ml/min/1.73 sqM) Est GFR (MDRD) Non-Af >60 (>60 ml/min/1.73 sqM) Glucose 70 L (74-99) mg/dL Plasma Lactic Acid Ralf (0.7-2.0) mmol/L Calcium 9.1 (8.4-10.2) mg/dL Total Bilirubin 0.4 (0.2-1.3) mg/dL AST 18 (14-36) U/L ALT 26 (9-52) U/L Alkaline Phosphatase 140 H (38-126) U/L Total Protein 5.7 L (6.3-8.2) g/dL Albumin 3.3 L (3.5-5.0) g/dL Urine Color Urine Appearance (Clear) Urine pH (5.0-8.0) Ur Specific [place] (1.001-1.035) Urine Protein (Negative) Urine Glucose (UA) (Negative) Urine Ketones (Negative) Urine Blood (Negative) Urine Nitrite (Negative) Urine Bilirubin (Negative) Urine Urobilinogen (<2.0) mg/dL Ur Leukocyte Esterase (Negative) Heterophile Antibody Negative (Negative) 03/19/17 03/19/17 03/19/17 Range/Units 21:40 21:40 22:15 WBC (3.8-10.6) k/uL RBC (3.80-5.40) m/uL Hgb (11.4-16.0) gm/dL Hct (34.0-46.0) % MCV (80.0-100.0) fL MCH (25.0-35.0) pg MCHC (31.0-37.0) g/dL RDW (11.5-15.5) % Plt Count (150-450) k/uL Neutrophils % % Lymphocytes % % Monocytes % % Eosinophils % % Basophils % % Neutrophils # (1.3-7.7) k/uL Lymphocytes # (1.0-4.8) k/uL Monocytes # (0-1.0) k/uL Eosinophils # (0-0.7) k/uL Basophils # (0-0.2) k/uL PT 10.7 (9.0-12.0) sec INR 1.1 (<1.2) APTT 22.3 (22.0-30.0) sec Sodium (137-145) mmol/L Potassium (3.5-5.1) mmol/L Chloride (98-107) mmol/L Carbon Dioxide (22-30) mmol/L Anion Gap mmol/L BUN (7-17) mg/dL Creatinine (0.52-1.04) mg/dL Est GFR (MDRD) Af Amer (>60 ml/min/1.73 sqM) Est GFR (MDRD) Non-Af (>60 ml/min/1.73 sqM) Glucose (74-99) mg/dL Plasma Lactic Acid Ralf 1.4 (0.7-2.0) mmol/L Calcium (8.4-10.2) mg/dL Total Bilirubin (0.2-1.3) mg/dL AST (14-36) U/L ALT (9-52) U/L Alkaline Phosphatase (38-126) U/L Total Protein (6.3-8.2) g/dL Albumin (3.5-5.0) g/dL Urine Color Light Yellow Urine Appearance Clear (Clear) Urine pH 7.0 (5.0-8.0) Ur Specific [place] 1.007 (1.001-1.035) Urine Protein Negative (Negative) Urine Glucose (UA) Negative (Negative) Urine Ketones Negative (Negative) Urine Blood Negative (Negative) Urine Nitrite Negative (Negative) Urine Bilirubin Negative (Negative) Urine Urobilinogen <2.0 (<2.0) mg/dL Ur Leukocyte Esterase Negative (Negative) Heterophile Antibody (Negative) - Radiology Data Radiology results: report reviewed Increasing consolidation in the right upper lobe and pleural thickening. Left lower lobe mass. Densities or increased compared to last exam inconsistent with progression of tumor. No heart failure. Disposition Clinical Impression: Pneumonia, Lung cancer, Brain cancer Disposition: ADMITTED IP TO THIS HOSP Condition: Good Referrals: Nnamdi Tam MD [Primary Care Provider] - 1-2 days Time of Disposition: 23:07
[2017-03-19 22:17] LABS: ALT 26 U/L (9-52); AST 18 U/L (14-36); Alkaline Phosphatase 140 U/L (38-126); Anion Gap 9 mmol/L; Blood Urea Nitrogen 13 mg/dL (7-17); Calcium 9.1 mg/dL (8.4-10.2); Carbon Dioxide 27 mmol/L (22-30); Chloride 99 mmol/L (98-107); Glucose 70 mg/dL (74-99); Non-African American GFR(MDRD) >60 (>60 ml/min/1.73 sqM); Potassium 3.9 mmol/L (3.5-5.1); Sodium 135 mmol/L (137-145); Total Bilirubin 0.4 mg/dL (0.2-1.3); Total Protein 5.7 g/dL (6.3-8.2)
[2017-03-19 22:19] LABS: Basophils % (A) 0 %; CH 30.1; CHCM 32.7; Eosinophils # (A) 0.2 k/uL (0-0.7); Eosinophils % (A) 1 %; HCT 35.2 % (34.0-46.0); HDW 2.43; HGB 11.8 gm/dL (11.4-16.0); Luc % (Auto) 1; Lymphocytes # (A) 0.5 k/uL (1.0-4.8); Lymphocytes % (A) 3 %; MCH 30.9 pg (25.0-35.0); MCHC 33.4 g/dL (31.0-37.0); MCV 92.4 fL (80.0-100.0); Mean Platelet Volume 6.6; Monocytes # (A) 0.6 k/uL (0-1.0); Monocytes % (A) 4 %; Neutrophils # (A) 13.1 k/uL (1.3-7.7); Neutrophils % (A) 91 %; RBC 3.81 m/uL (3.80-5.40); RDW 15.6 % (11.5-15.5); WBC 14.5 k/uL (3.8-10.6); WBC (Perox) 14.07
[2017-03-19 22:23] LABS: INR 1.1 (<1.2); Prothrombin Time 10.7 sec (9.0-12.0)
[2017-03-19 22:29] LABS: Appearance,Urine Clear (Clear); Bilirubin,Urine Negative (Negative); Glucose,Urine (UA) Negative (Negative); Ketones,Urine Negative (Negative); Leukocyte Esterase,Urine Negative (Negative); Nitrite,Urine Negative (Negative); Protein,Urine Negative (Negative); Specific Gravity,Urine 1.007 (1.001-1.035); UA Billing (MACRO vs. MICRO) CHEM; Urobilinogen,Urine <2.0 mg/dL (<2.0)
[2017-03-19 22:32] LABS: Partial Thromboplastin Time 22.3 sec (22.0-30.0)
[2017-03-19] MEDS ORDERED: PNEUMONIA PROTOCOL UTILIZED 1 EACH MISC PO PRN (23:03)
[2017-03-19] MEDS ORDERED: ACET/COD 300 MG/30 MG STARTER PACK 6 TAB BTL PO PRN (23:57)
[2017-03-20] MEDS: SODIUM CHLORIDE 0.9% 1,000 ML IV STA (00:03)
[2017-03-20] MEDS: LEVOFLOXACIN 750 MG TAB PO SCH ×2 (00:03→21:27)
[2017-03-20] MEDS: Acetaminophen-Codeine 300-30mg TAB PO PRN ×4 (00:47→21:26)
[2017-03-20] MEDS: ALPRAZolam 0.5 MG TAB PO PRN ×4 (00:47→21:26)
[2017-03-20] MEDS: PIPERACILLIN-TAZOBACTAM 3.375 GM in DEXTROSE/WATER 1 50ML.BAG IVPB SCH ×3 (02:41→15:57)
[2017-03-20 05:08] VITALS: BMI 24.7
[2017-03-20] MEDS: IPRATROPIUM-ALBUTEROL 3 ML NEB INHALATION PRN ×4 (06:51→20:54)
[2017-03-20] MEDS ORDERED: MAGNESIUM HYDROXIDE 2,400 MG/10 ML CUP PO PRN (07:51)
[2017-03-20] MEDS ORDERED: RX INFO: IV CONTRAST WAS GIVEN 1 EACH MISC MISCELLANE PRN (08:07)
[2017-03-20] MEDS ORDERED: ONDANSETRON 4 MG/2 ML VIAL IVP PRN ×2 (08:23→08:24)
[2017-03-20] MEDS: HYDROCORTISONE SUCCINATE 100 MG/2 ML VIAL IV SCH (08:57)
--- NOTE | 2017-03-20 11:11 | CT ---
EXAMINATION TYPE: CT chest w con DATE OF EXAM: 03/20/2017 COMPARISON: Previous study dated 10/12/2016 HISTORY: pneumonia, lung CA CT DLP: 211.8 mGycm Automated exposure control for dose reduction was used. CONTRAST: CT scan of the chest is performed with IV Contrast, patient injected with 100 mL of Omnipaque 300. FINDINGS: There is worsening opacity involving the right upper lobe. The right upper lobe bronchus is occluded. The area of cavitation is now fluid-filled. There is right basilar airspace disease. 3 pulmonary nodules in the left lower lobe have now coalesce d into 2 nodules measuring 3.4 x 4.7 cm and 2.1 x 2.3 cm respectively. Previously this measured 2.2 x 2 cm and 6 x 11.6 mm. There is a left perihilar nodule which previously measured 1.4 x 1 cm. This no w measures 2.5 x 2.5 cm. Small 9.5 x 5.3 mm nodule in the left lower lobe has enlarged to 13.5 x 16.4 mm. No definite adenopathy is seen. There is been interval development of a pericardial effusion. Maximal thickness is 7.3 mm. Heart size is upper limits of normal. There is a small hiatal hernia. Both adrenal glands appear normal. No definite hepatic metastases are identified. Visualized upper abdominal structures are otherwise unremarkable. There is degenerative disc disease and hypertrophic spondylosis within the spine. There is endplate c hanges. No definite destructive lesion is seen. IMPRESSION: 1. WORSENING PRIMARY AND METASTATIC LUNG CANCER. 2. INTERVAL DEVELOPMENT OF SMALL PERICARDIAL EFFUSION. 3. DEGENERATIVE CHANGE WITHIN THE SPINE.
--- NOTE | 2017-03-20 11:22 | HP ---
CHIEF COMPLAINT: A 77-year-old white female admitted with fever, chills and right upper lobe pneumonia versus worsening cancer. Admitted with pneumonia due to increasing cough, congestion, shortness of breath. Came to the hospital with worsening cough and congestion, was found to have right upper lobe pneumonia as well as left lower lung cancer on chest x-ray. Due to increased respiratory distress, she was admitted. Home medications include: 1. Alprazolam 0.5 t.i.d. 2. Tylenol No. 3 q.4 hours p.r.n. 3. Motrin q.4 p.r.n. Allergies are to MORPHINE. REVIEW OF SYSTEMS: Negative except as mentioned in the HPI. Past medical history is lung cancer, pneumonia, non-small cell lung cancer, metastatic post-chemotherapy radiation obtained in February 2015, irradiation killed lung tissue and abscess, infected right lung, right lung pneumothorax, history of breast cancer, was on Teva for cancer. PAST SURGICAL HISTORY: Appendectomy, hysterectomy, tonsillectomy, bilateral mastectomy and history of former smoker, no alcohol, no illicit drugs, history of anxiety and depression. PHYSICAL EXAM: Temp 98.3, pulse 92, respirations 16 to 18, blood pressure 140s/60s, O2 is 95% on room air. HEENT is ( ) GI: Soft, nontender. Normal bowel sounds. Lungs show scattered rhonchi and wheeze. CARDIOVASCULAR: S1, S2. EXTREMITIES: 2+ ( ) edema, bilaterally. BACK: Nontender. NEUROLOGIC: Cranial nerves are intact. PSYCH: Fair mood and affect. SKIN: Warm, dry, decreased skin turgor. Some lymphadenopathy, no rashes. White count is 14.5, platelets 456, sodium 135, potassium 3.9, BUN of 13, creatinine is 0.7. Chest x-ray shows left lower lobe mass, right upper lobe increased density, possibly a progression of tumor versus pneumonia. Started on empiric antibiotics for acute respiratory distress. Lung cancer with metastases. Possible brain cancer. Right upper lobe versus an acute respiratory distress, hypoxemic respiratory failure, protein calorie malnutrition. Oncology and Pulmonology consult. [facility]
--- NOTE | 2017-03-20 11:28 | XR ---
EXAMINATION TYPE: XR chest 2V DATE OF EXAM: 03/20/2017 COMPARISON: 03/19/2017 HISTORY: Shortness of breath TECHNIQUE: Frontal and lateral views of the chest are obtained. FINDINGS: Scattered senescent parenchymal changes noted. Hyperinflation compatible with COPD. Large area of airspace consolidation with volume loss of the right upper lobe. This may reflect infil trate however underlying mass is not excluded. Stable mass left lower lobe as well as left lower lobe nodule. Heart size is stable. Mediastinal structures are stable and grossly unremarkable. No evidence for hilar prominence. Degenerative changes dorsal spine. IMPRESSION: 1. Stable chest.
--- NOTE | 2017-03-20 12:24 | P.CNPUL ---
History of Present Illness Consult date: 03/20/17 Requesting physician: Salvador Holt Reason for consult: lung mass Chief complaint: shortness of breath History of present illness: This is a 77-year-old female patient who is being seen, examined and evaluated today. The patient originally presented to the emergency room on 03/19/2017 with a chief complaint of fever, shortness of breath and dry cough. Patient does have a history of lung cancer, brain cancer, as well as breast cancer. Patient states that her cough has gotten worse over the last few days. Patient states her last radiation treatment was in february 2016. patient states she has been treated in the past for pneumonia. Chest xray revealed an increasing consolidation in the right upper lobe and pleural thickening, Left lower lobe mass, densities are increased compared to last exam and consistent with progression of tumor. No heart failure. Patient does follow with Dr. Bain in the outpatient setting for her oncologist. In states she did undergo chemo as well as radiation therapies in the past however the did not work for her so she was switched over to an oral agent. She did undergo a CT of the chest this morning as well as a chest x-ray, those results not readily available at this time. After initial workup in the emergency room the patient was admitted with pneumonia. The patient is resting up in bed on room air, she does have shortness of breath with exertion. She continues to have a dry cough. She has no further complaints at this time. Review of Systems 14 point review of systems was completed and is negative unless noted above in the HPI. Past Medical History Past Medical History: Cancer, Pneumonia Additional Past Medical History / Comment(s): Non-small cell lung cancer, metastatic post chemotherapy/radiation, completed end of february 2015 chemotherapy end of february 2016, right lung pneumothorax, breast cancer History of Any Multi-Drug Resistant Organisms: None Reported Past Surgical History: Appendectomy, Breast Surgery, Hysterectomy, Tonsillectomy Additional Past Surgical History / Comment(s): bilateral mastectomy Past Anesthesia/Blood Transfusion Reactions: No Reported Reaction Past Psychological History: Anxiety, Depression Smoking Status: Former smoker Past Alcohol Use History: None Reported Past Drug Use History: None Reported - Past Family History Father Additional Family Medical History / Comment(s): pacemaker, triple bypass Mother Family Medical History: Cancer Additional Family Medical History / Comment(s): cervical and breast Daughter(s) Family Medical History: Cancer Additional Family Medical History / Comment(s): cervical cancer Medications and Allergies Home Medications Medication Instructions Recorded Confirmed Type ALPRAZolam [Alprazolam] 0.5 mg PO TID PRN 04/21/16 03/19/17 History Acetaminophen with Codeine 1 tab PO Q4-6H PRN 04/21/16 03/19/17 History [Acetaminophen-Cod #3 Tablet] Ibuprofen [Motrin] 200 - 400 mg PO Q6HR PRN 10/12/16 03/19/17 History Allergies Allergy/AdvReac Type Severity Reaction Status Date / Time morphine AdvReac Hallucinati Verified 03/19/17 21:24 ons Physical Exam Vitals: Vital Signs Temp Pulse Pulse Resp BP BP Pulse Ox 03/20/17 11:25 80 03/20/17 11:15 76 03/20/17 08:00 88 18 03/20/17 07:03 80 03/20/17 07:00 98.2 F 88 18 128/60 95 03/20/17 06:53 80 03/20/17 00:36 96.4 F L 79 16 150/69 95 03/19/17 23:50 79 16 03/19/17 23:21 98.2 F 77 17 134/60 96 03/19/17 20:42 98.3 F 92 18 142/61 95 Intake and Output 03/19/17 03/20/17 03/20/17 22:59 06:59 14:59 Intake Total 50 Balance 50 Intake: Intake, IV Titration 50 Amount Piperacillin-Tazobactam 3 50 .375 gm In Dextrose/Water 1 50ml.bag @ 12.5 mls/hr IVPB Q8HR [facility] Rx#: [id number] Other: # Voids 2 1 Weight 59.421 kg 59.421 kg 59.421 kg Patient Weight 03/21/17 06:59 Weight 59.421 kg GENERAL EXAM: Alert, active, comfortable in no apparent distress. HEAD: Normocephalic. EYES: Normal reaction of pupils, equal size. NOSE: Clear with pink turbinates. THROAT: No erythema or exudates. NECK: No masses, no JVD. CHEST: No chest wall deformity. LUNGS: Equal air entry with faint mild bilateral wheezing noted throughout, no crackles, , rhonchi or dullness. This diminished CVS: S1 and S2 normal with no audible mumurs, regular rhythm. ABDOMEN: No hepatosplenomegaly, normal bowel sounds, no guarding or rigidity. EXTREMITIES: No edema noted, pedal pulses palpable. SKIN: No rashes CENTRAL NERVOUS SYSTEM: No focal deficits, tone is normal in all 4 extremities. Results - Laboratory Findings CBC and BMP: 03/21/17 06:55 03/21/17 06:55 PT/INR, D-dimer PT 10.7 sec (9.0-12.0) 03/19/17 21:40 INR 1.1 (<1.2) 03/19/17 21:40 Abnormal lab findings: Abnormal Labs 03/19/17 03/19/17 21:40 21:40 WBC 14.5 H RDW 15.6 H Plt Count 456 H Neutrophils # 13.1 H Lymphocytes # 0.5 L Sodium 135 L Glucose 70 L Alkaline Phosphatase 140 H Total Protein 5.7 L Albumin 3.3 L - Diagnostic Findings Chest x-ray: report reviewed, image reviewed Assessment and Plan Plan: Assessment Right upper lobe pneumonia Acute respiratory distress syndrome Left lower lobe mass, increased from last chest x-ray History of non-small cell lung cancer History of breast cancer status post bilateral mastectomy History of brain cancer Anxiety Plan Medications have been reviewed and will be continued as ordered. We will review CT results once available. Continue with pulmonary hygiene, coughing and deep breathing exercises, and supportive care. Supplemental oxygen to maintain oxygen saturations of 92% or better. Continue nebulizer treatments, add budesonide. Initiate and encourage incentive spirometer. Blood culture pending, obtain sputum culture. GI and DVT prophylaxis. We will continue to monitor labs/results and adjust treatment as necessary. Further recommendations pending. I performed an examination of the patient and discussed their management with the nurse practitioner. I have reviewed the nurse practitioner's note and agree with the documented findings and plan of care.
--- NOTE | 2017-03-20 14:09 | P.CONS ---
History of Present Illness - Reason for Consult Consult date: 03/20/17 lung cancer, pneumonia Requesting physician: Sahara Bond - Chief Complaint fever - History of Present Illness Mrs. Toribio is a very pleasant female pt of Dr. Bain who initially presented in Oct 2015 with progressive cough and dyspnea for about 4 months, CXR was suspicious for RUL lung mass, CT chest 11/11/15 revealed a large RUL perihilar mass extending from the hilum encasing the right upper lobe bronchus, segmental pulmonary arterial branches as well as the interlobar pulmonary artery proximally and it extended peripherally to pleural surface, measured 8.3 x 9.1cm, some small, non -specific 4-7mm scattered left lung nodules. Bronchoscopy on 11/22/15 revealed collapse of RUL, biopsy was consistent with adenocarcinoma of the lung. Staging PET revealed suspicious uptake in the previously mentioned areas, left lung nodules were not showing increased uptake or change in size. Pt was evaluated by Dr. Page at [facility] but, not felt that to be a surgical candidate due to tumor extending to SVC. EGFR/ALK/ROS-1 mutations were all negative so no targeted therapy was indicated 1st line, brain MRI was negative. She started concurrent radiation and chemotherapy with cisplatin/alimta on 01/04/16. Pt only tolerated 2 cycles of chemo, she complete radiation 02/21/16. Treatment follow up CT chest 03/07/16 revealed cavitary changes in RONAK mass consistent with treatment effects, no progression. Pt had lung abscess that was treated in May 2016. 06/09/[address] chest revealed increase in size of multiple small RONAK nodules and new nodule in left lung, PET scan was positive for disease progression. On 07/11/2016 she started nivolumab, she has had 12 treatments so far. 11/14/[address] scan revealed no significant changes, MRI brain was done about same time because of dizziness it unfortunately revealed multiple brain lesions. Opdivo was held and she completed whole brain radiation mid December 2016, pt resumed opdivo in January. Repeat brain MRI on 02/07/2017 revealed improvement of brain metastasis. Pt has been on 2mg dexamethasone daily, recent taper. Pt states having fever at home with weakness, poor appetite, she was "seeing stars". LLE was shaking and weak, she had nausea and poor appetite, denies vomiting, incontinence, numbness or tingling. Review of Systems All systems: negative Constitutional: Reports as per HPI Past Medical History Past Medical History: Cancer, Pneumonia Additional Past Medical History / Comment(s): Non-small cell lung cancer, metastatic post chemotherapy/radiation, completed end of february 2015 chemotherapy end of february 2016, right lung pneumothorax, breast cancer History of Any Multi-Drug Resistant Organisms: None Reported Past Surgical History: Appendectomy, Breast Surgery, Hysterectomy, Tonsillectomy Additional Past Surgical History / Comment(s): bilateral mastectomy Past Anesthesia/Blood Transfusion Reactions: No Reported Reaction Past Psychological History: Anxiety, Depression Smoking Status: Former smoker Past Alcohol Use History: None Reported Past Drug Use History: None Reported - Past Family History Father Additional Family Medical History / Comment(s): pacemaker, triple bypass Mother Family Medical History: Cancer Additional Family Medical History / Comment(s): cervical and breast Daughter(s) Family Medical History: Cancer Additional Family Medical History / Comment(s): cervical cancer Medications and Allergies Home Medications Medication Instructions Recorded Confirmed Type ALPRAZolam [Alprazolam] 0.5 mg PO TID PRN 04/21/16 03/19/17 History Acetaminophen with Codeine 1 tab PO Q4-6H PRN 04/21/16 03/19/17 History [Acetaminophen-Cod #3 Tablet] Ibuprofen [Motrin] 200 - 400 mg PO Q6HR PRN 10/12/16 03/19/17 History Allergies Allergy/AdvReac Type Severity Reaction Status Date / Time morphine AdvReac Hallucinati Verified 03/19/17 21:24 ons Physical Exam Vitals: Vital Signs Temp Pulse Pulse Resp BP BP Pulse Ox 03/20/17 08:00 88 18 03/20/17 07:03 80 03/20/17 07:00 98.2 F 88 18 128/60 95 03/20/17 06:53 80 03/20/17 00:36 96.4 F L 79 16 150/69 95 03/19/17 23:50 79 16 03/19/17 23:21 98.2 F 77 17 134/60 96 03/19/17 20:42 98.3 F 92 18 142/61 95 Intake and Output 03/19/17 03/20/17 03/20/17 22:59 06:59 14:59 Intake Total 50 Balance 50 Intake: Intake, IV Titration 50 Amount Piperacillin-Tazobactam 3 50 .375 gm In Dextrose/Water 1 50ml.bag @ 12.5 mls/hr IVPB Q8HR [facility] Rx#: [id number] Other: # Voids 2 1 Weight 59.421 kg 59.421 kg 59.421 kg Patient Weight 03/21/17 06:59 Weight 59.421 kg - Constitutional General appearance: cooperative, mild distress, thin - EENT Eyes: EOMI, normal appearance ENT: normal oropharynx - Neck Neck: no lymphadenopathy - Respiratory Respiratory: bilateral: diminished, prolonged expiration - Cardiovascular Heart sounds: normal: S1, S2 leg Peripheral Edema: bilateral: None - Gastrointestinal General gastrointestinal: no absent bowel sounds, no decreased bowel sounds, no distended, no hepatomegaly, no hyperactive bowel sounds, normal bowel sounds, no organomegaly, no rigid, no scaphoid, soft, no splenomegaly, no tenderness, no umbilical hernia, no ventral hernia - Neurologic Neurologic: CNII-XII intact - Musculoskeletal Musculoskeletal: generalized weakness, strength equal bilaterally - Psychiatric Psychiatric: A&O x's 3, appropriate affect, intact judgment & insight Results CBC & Chem 7: 03/19/17 21:40 03/19/17 21:40 Labs: Abnormal Lab Results - Last 24 Hours (Table) 03/19/17 03/19/17 Range/Units 21:40 21:40 WBC 14.5 H (3.8-10.6) k/uL RDW 15.6 H (11.5-15.5) % Plt Count 456 H (150-450) k/uL Neutrophils # 13.1 H (1.3-7.7) k/uL Lymphocytes # 0.5 L (1.0-4.8) k/uL Sodium 135 L (137-145) mmol/L Glucose 70 L (74-99) mg/dL Alkaline Phosphatase 140 H (38-126) U/L Total Protein 5.7 L (6.3-8.2) g/dL Albumin 3.3 L (3.5-5.0) g/dL Assessment and Plan (1) Non-small cell cancer of right lung Narrative/Plan: CT to evaluate disease has been requested, concern is that pt symptoms are progressive malignancy vs infection/pneumonia. We will follow up in AM with those results and plan of care to follow. Agree with current plan of care, empiric antibiotics and supportive treatments. Status: Chronic
[2017-03-20] MEDS: BUDESONIDE 0.5 MG/2 ML NEBU INHALATION SCH (20:54)
[2017-03-21] MEDS: PIPERACILLIN-TAZOBACTAM 3.375 GM in DEXTROSE/WATER 1 50ML.BAG IVPB SCH ×4 (00:27→23:20)
[2017-03-21 07:25] LABS: Basophils % (A) 0 %; CH 29.7; CHCM 32.4; Eosinophils # (A) 0.1 k/uL (0-0.7); Eosinophils % (A) 2 %; HCT 30.9 % (34.0-46.0); HDW 2.44; HGB 10.1 gm/dL (11.4-16.0); Luc # (Auto) 0.09; Luc % (Auto) 1; Lymphocytes # (A) 0.3 k/uL (1.0-4.8); Lymphocytes % (A) 4 %; MCH 30.2 pg (25.0-35.0); MCHC 32.8 g/dL (31.0-37.0); MCV 92.1 fL (80.0-100.0); Mean Platelet Volume 6.8; Monocytes # (A) 0.4 k/uL (0-1.0); Monocytes % (A) 5 %; Neutrophils # (A) 7.1 k/uL (1.3-7.7); Neutrophils % (A) 88 %; RBC 3.35 m/uL (3.80-5.40); RDW 15.3 % (11.5-15.5); WBC (Perox) 8.33
[2017-03-21 07:45] LABS: ALT 23 U/L (9-52); AST 18 U/L (14-36); Alkaline Phosphatase 112 U/L (38-126); Anion Gap 6 mmol/L; Blood Urea Nitrogen 12 mg/dL (7-17); Calcium 8.5 mg/dL (8.4-10.2); Carbon Dioxide 27 mmol/L (22-30); Chloride 103 mmol/L (98-107); Glucose 84 mg/dL (74-99); Non-African American GFR(MDRD) >60 (>60 ml/min/1.73 sqM); Potassium 3.8 mmol/L (3.5-5.1); Sodium 136 mmol/L (137-145); Total Bilirubin 0.6 mg/dL (0.2-1.3); Total Protein 5.2 g/dL (6.3-8.2)
[2017-03-21] MEDS: BUDESONIDE 0.5 MG/2 ML NEBU INHALATION SCH ×2 (07:50→20:01)
[2017-03-21] MEDS: IPRATROPIUM-ALBUTEROL 3 ML NEB INHALATION PRN ×4 (07:50→20:01)
[2017-03-21 08:03] VITALS: RESP 18
[2017-03-21] MEDS: Acetaminophen-Codeine 300-30mg TAB PO PRN ×3 (08:44→19:07)
[2017-03-21] MEDS: HYDROCORTISONE SUCCINATE 100 MG/2 ML VIAL IV SCH (09:36)
--- NOTE | 2017-03-21 12:43 | P.PN ---
Subjective 03/20/17-This is a 77-year-old female patient who is being seen, examined and evaluated today. The patient originally presented to the emergency room on with a chief complaint of fever, shortness of breath and dry cough. Patient does have a history of lung cancer, brain cancer, as well as breast cancer. Patient states that her cough has gotten worse over the last few days. Patient states her last radiation treatment was in february 2016. patient states she has been treated in the past for pneumonia. Chest xray revealed an increasing consolidation in the right upper lobe and pleural thickening, Left lower lobe mass, densities are increased compared to last exam and consistent with progression of tumor. No heart failure. Patient does follow with Dr. Bain in the outpatient setting for her oncologist. In states she did undergo chemo as well as radiation therapies in the past however the did not work for her so she was switched over to an oral agent. She did undergo a CT of the chest this morning as well as a chest x-ray, those results not readily available at this time. After initial workup in the emergency room the patient was admitted with pneumonia. The patient is resting up in bed on room air, she does have shortness of breath with exertion. She continues to have a dry cough. She has no further complaints at this time. 03/21/17-upon examination today the patient's resting up in bed on room air. She states her cough is still present however has decreased slightly. Patient continues to be short of breath with exertion however she states this has improved slightly as well. Patient is using her incentive spirometer and pulls volumes about 700 ML's. She states her appetite has slightly improved today. She plans to follow-up in the outpatient setting in regards to her lung cancer, patient is hoping to be discharged in the next 24 hours. Objective - Vital Signs Vital signs: Vital Signs Temp 97.9 F 03/21/17 07:00 Pulse 88 03/21/17 11:55 Resp 18 03/21/17 11:45 BP 108/64 03/21/17 07:00 Pulse Ox 96 03/21/17 07:00 Intake & Output 03/20/17 03/21/17 03/21/17 18:59 06:59 18:59 Intake Total 1480 Balance 1480 Weight 59.421 kg Intake: Intake, IV Titration 650 Amount Piperacillin-Tazobactam 3 50 .375 gm In Dextrose/Water 1 50ml.bag @ 12.5 mls/hr IVPB Q8HR [facility] Rx#: [id number] Sodium Chloride 0.9% 1, 600 000 ml @ 100 mls/hr IV . Q10H [facility] Rx#:[id number] Oral 830 Other: # Voids 2 3 - Exam GENERAL EXAM: Alert, active, comfortable in no apparent distress. HEAD: Normocephalic. EYES: Normal reaction of pupils, equal size. NOSE: Clear with pink turbinates. THROAT: No erythema or exudates. NECK: No masses, no JVD. CHEST: No chest wall deformity. LUNGS: Equal air entry with faint mild bilateral wheezing noted throughout, no crackles, , rhonchi or dullness. Bases diminished CVS: S1 and S2 normal with no audible mumurs, regular rhythm. ABDOMEN: No hepatosplenomegaly, normal bowel sounds, no guarding or rigidity. EXTREMITIES: No edema noted, pedal pulses palpable. SKIN: No rashes CENTRAL NERVOUS SYSTEM: No focal deficits, tone is normal in all 4 extremities. - Labs CBC & Chem 7: 03/21/17 06:55 03/21/17 06:55 Labs: Abnormal Lab Results - Last 24 Hours (Table) 03/21/17 03/21/17 Range/Units 06:55 06:55 RBC 3.35 L (3.80-5.40) m/uL Hgb 10.1 L (11.4-16.0) gm/dL Hct 30.9 L (34.0-46.0) % Lymphocytes # 0.3 L (1.0-4.8) k/uL Sodium 136 L (137-145) mmol/L Total Protein 5.2 L (6.3-8.2) g/dL Albumin 2.9 L (3.5-5.0) g/dL Microbiology - Last 24 Hours (Table) 03/19/17 21:40 Blood Culture - Preliminary Blood No Growth after 24 hours Assessment and Plan Plan: Assessment Right upper lobe pneumonia Acute respiratory distress syndrome Left lower lobe mass, increased from last chest x-ray History of non-small cell lung cancer History of breast cancer status post bilateral mastectomy History of brain cancer Anxiety Plan Patient could be cleared for discharged in the next 24-48 hours in regards to pulmonology. The patient states she prefers to follow-up in the outpatient setting. Labs reviewed. Medications have been reviewed and will be continued as ordered. CT reviewed with the patient. Continue with pulmonary hygiene, coughing and deep breathing exercises, and supportive care. Supplemental oxygen to maintain oxygen saturations of 92% or better. Continue nebulizer treatments, add budesonide. Initiate and encourage incentive spirometer. Blood culture negative so far, obtain sputum culture. GI and DVT prophylaxis. We will continue to monitor labs/results and adjust treatment as necessary. Further recommendations pending. I performed an examination of the patient and discussed their management with the nurse practitioner. I have reviewed the nurse practitioner's note and agree with the documented findings and plan of care.
--- NOTE | 2017-03-21 13:09 | HP ---
CHIEF COMPLAINT: A 77-year-old white female with progressive cough just in the last 4 months. CAT scan shows suspicious for upper lung mass which has worsened due to prior CAT scan on 11/11/2015 showed a right upper lung perihilar mass. She had an adenocarcinoma of the lung. PET scan showed left lung nodules. She was not a surgical candidate. She had radiation chemotherapy with cisplatin alimta on 01/04/16. She tolerated 2 cycles of chemo and radiation. She has been followed for concern since this time. She had whole brain radiation in December 2016, MRI 10/09/2016, reviewed and improvement of brain metastases. She has been on 2 mg dexamethasone daily with a taper. She had nausea, poor appetite. REVIEW OF SYSTEMS: A 14-point review of systems negative except for mentioned in HPI. PAST MEDICAL HISTORY: Cancer, pneumonia, non-small cell lung cancer, metastatic status post chemoradiation, right upper lung pneumothorax, breast cancer. SURGICAL HISTORY: Appendectomy, breast surgery, hysterectomy, tonsillectomy, bilateral mastectomy, anxiety, depression, followup pacemaker, triple bypass. Mother had cancer, cervical and breast. Temp 98.2, pulse 88, respiratory 16 to 18, blood pressure 122 to 150/70s. Weight 69 kg. CONSTITUTIONAL: Cooperative, mild dyspepsia. ENT: Extraocular movements intact NECK: No lymphadenopathy. RESPIRATORY: Diminished, poor on expiration. HEART: S1, S2. GI: Soft. No bowel sounds, no mass or organomegaly. Cranial nerves are intact. White count is 14.5, hemoglobin is 135, glucose 78, albumin 3.3. ASSESSMENT: 1. Non-small cell lung cancer of the right lung, possible with pneumonia. Continue with empiric antibiotics. 2. History of adenocarcinoma of the lung. 3. Anxiety. 4. Right upper lobe pneumonia. 5. Respiratory distress syndrome. 6. Bilateral mastectomy. 7. History of brain cancer. 8. Anxiety. Continue with the updraft treatments, IV antibiotics. Home medications, please see further orders. MTDD
[2017-03-21] MEDS: ALPRAZolam 0.5 MG TAB PO PRN ×2 (15:02→21:35)
--- NOTE | 2017-03-21 19:31 | P.PN ---
Subjective Principal diagnosis: MALIK, weakness Pt seen in follow up, she is ambulating independently, states less MALIK, she is tolerating oral intake, she thinks she is constipated. Objective - Vital Signs Vital signs: Vital Signs Temp 98.0 F 03/21/17 15:00 Pulse 82 03/21/17 16:01 Resp 18 03/21/17 15:00 BP 110/57 03/21/17 15:00 Pulse Ox 96 03/21/17 15:00 Intake & Output 03/21/17 03/21/17 03/22/17 06:59 18:59 06:59 Intake Total 1480 50 Balance 1480 50 Intake: Intake, IV Titration 650 50 Amount Piperacillin-Tazobactam 3 50 50 .375 gm In Dextrose/Water 1 50ml.bag @ 12.5 mls/hr IVPB Q8HR [facility] Rx#: [id number] Sodium Chloride 0.9% 1, 600 000 ml @ 100 mls/hr IV . Q10H [facility] Rx#:[id number] Oral 830 Other: # Voids 3 - Constitutional General appearance: Present: average body habitus, cooperative, no acute distress - Respiratory Details: resp even and labored - Musculoskeletal Musculoskeletal: Present: gait normal - Psychiatric Psychiatric: Present: A&O x's 3, appropriate affect, intact judgment & insight - Labs CBC & Chem 7: 03/21/17 06:55 03/21/17 06:55 Labs: Abnormal Lab Results - Last 24 Hours (Table) 03/21/17 03/21/17 Range/Units 06:55 06:55 RBC 3.35 L (3.80-5.40) m/uL Hgb 10.1 L (11.4-16.0) gm/dL Hct 30.9 L (34.0-46.0) % Lymphocytes # 0.3 L (1.0-4.8) k/uL Sodium 136 L (137-145) mmol/L Total Protein 5.2 L (6.3-8.2) g/dL Albumin 2.9 L (3.5-5.0) g/dL Microbiology - Last 24 Hours (Table) 03/19/17 21:40 Blood Culture - Preliminary Blood No Growth after 24 hours - Imaging and Cardiology Chest x-ray: report reviewed CT scan - chest: report reviewed Assessment and Plan (1) Non-small cell cancer of right lung Narrative/Plan: Discussed with pt disease progression on CT. Pt has the option to try chemo again and she is interested in doing so, she has good performance status. She is aware that the intent of chemo is prolongation of life and palliation of cancer symptoms. We discussed quality vs quantity of life, also prognosis of likely 6-8 months. All of her questions were answered, she has an appt with Dr. Bain on the so she and her family will talk with him and make final decision at that time. Status: Chronic Plan: Pt is ok from Hem/Onc standpoint to be discharged to home once cleared by IM and consulting Physicians
[2017-03-22] MEDS: Acetaminophen-Codeine 300-30mg TAB PO PRN ×2 (05:51→12:23)
[2017-03-22] MEDS: ALPRAZolam 0.5 MG TAB PO PRN ×2 (06:13→12:23)
--- NOTE | 2017-03-22 06:40 | PN ---
CHIEF COMPLAINT: A 77-year-old white female who was admitted due to pneumonia in the right upper lobe on top of her left lower lobe mass for which she has been treated for lung cancer as an outpatient with pneumonia versus progression of tumor. She is improving with IV antibiotics since she has been admitted. She is up ambulating, where she could not ambulate yesterday. Now she is ambulating to the bathroom. Incentive spirometer 700 mL. Temp 97.9, pulse 84, respiratory rate 16 to 18, blood pressure 108/64, pulse 96. HEAD: Normocephalic, atraumatic. OPHTHALMOLOGIC: Pupils equal, round and reactive to light and accommodation. NECK: Supple. No mass. Lungs show mild bilateral wheezing and rales. CARDIOVASCULAR: S1 and S2. ABDOMEN: Soft. EXTREMITIES: No cyanosis, clubbing or edema. MUSCULOSKELETAL: She is up, ambulating to the bathroom. Hemoglobin is 10.1, ( ) 8.0. Sodium 136, potassium 3.8. ASSESSMENT: 1. Right upper lobe pneumonia, improving. Suspect ( ) as her breathing is greatly improved. 2. Adult respiratory distress syndrome, improved. 3. Left lower lung mass secondary to lung cancer, non-small cell. 4. History of breast cancer. 5. History of brain cancer. 6. Anxiety. Continue with IV antibiotics. Continue oxygenation as needed. Continue updraft treatments with budesonide. Continue incentive spirometer. Possible discharge home in the next 24 to 48 hours. MTDD
[2017-03-22] MEDS: BUDESONIDE 0.5 MG/2 ML NEBU INHALATION SCH (07:41)
[2017-03-22] MEDS: IPRATROPIUM-ALBUTEROL 3 ML NEB INHALATION PRN ×2 (07:41→15:52)
[2017-03-22] MEDS: PIPERACILLIN-TAZOBACTAM 3.375 GM in DEXTROSE/WATER 1 50ML.BAG IVPB SCH (08:12)
[2017-03-22] MEDS: HYDROCORTISONE SUCCINATE 100 MG/2 ML VIAL IV SCH (08:12)
--- NOTE | 2017-03-22 11:28 | P.PN ---
Subjective 03/20/17-This is a 77-year-old female patient who is being seen, examined and evaluated today. The patient originally presented to the emergency room on with a chief complaint of fever, shortness of breath and dry cough. Patient does have a history of lung cancer, brain cancer, as well as breast cancer. Patient states that her cough has gotten worse over the last few days. Patient states her last radiation treatment was in february 2016. patient states she has been treated in the past for pneumonia. Chest xray revealed an increasing consolidation in the right upper lobe and pleural thickening, Left lower lobe mass, densities are increased compared to last exam and consistent with progression of tumor. No heart failure. Patient does follow with Dr. Bain in the outpatient setting for her oncologist. In states she did undergo chemo as well as radiation therapies in the past however the did not work for her so she was switched over to an oral agent. She did undergo a CT of the chest this morning as well as a chest x-ray, those results not readily available at this time. After initial workup in the emergency room the patient was admitted with pneumonia. The patient is resting up in bed on room air, she does have shortness of breath with exertion. She continues to have a dry cough. She has no further complaints at this time. 03/21/17-upon examination today the patient's resting up in bed on room air. She states her cough is still present however has decreased slightly. Patient continues to be short of breath with exertion however she states this has improved slightly as well. Patient is using her incentive spirometer and pulls volumes about 700 ML's. She states her appetite has slightly improved today. She plans to follow-up in the outpatient setting in regards to her lung cancer, patient is hoping to be discharged in the next 24 hours. 03/22/17- examination patient is resting up in bed on room air. She continues to have intermittent shortness of breath with exertion. She was noted to have a low-grade fever this morning of 99, for which she responded well with Tylenol. It was discussed with her yesterday that her prognosis is poor and life expectancy of 6-12 months. Patient is unsure at this time whether she will go forth with chemotherapy again. Patient states she understands her prognosis and would like to go home and make a decision in the outpatient setting in regards to treatment. She already has a doctor's appointment to see Dr. Bain on the of this month. Objective - Vital Signs Vital signs: Vital Signs Temp 99.6 F 03/22/17 07:00 Pulse 86 03/22/17 07:56 Resp 18 03/22/17 07:43 BP 107/73 03/22/17 07:00 Pulse Ox 91 L 03/22/17 07:00 Intake & Output 03/21/17 03/22/17 03/22/17 18:59 06:59 18:59 Intake Total 50 50 Balance 50 50 Intake: Intake, IV Titration 50 50 Amount Piperacillin-Tazobactam 3 50 50 .375 gm In Dextrose/Water 1 50ml.bag @ 12.5 mls/hr IVPB Q8HR [facility] Rx#: [id number] Other: # Voids 2 # Bowel Movements 1 - Exam GENERAL EXAM: Alert, active, comfortable in no apparent distress. HEAD: Normocephalic. EYES: Normal reaction of pupils, equal size. NOSE: Clear with pink turbinates. THROAT: No erythema or exudates. NECK: No masses, no JVD. CHEST: No chest wall deformity. LUNGS: Equal air entry with faint mild bilateral wheezing noted throughout, no crackles, , rhonchi or dullness. Bases diminished CVS: S1 and S2 normal with no audible mumurs, regular rhythm. ABDOMEN: No hepatosplenomegaly, normal bowel sounds, no guarding or rigidity. EXTREMITIES: No edema noted, pedal pulses palpable. SKIN: No rashes CENTRAL NERVOUS SYSTEM: No focal deficits, tone is normal in all 4 extremities. - Labs CBC & Chem 7: 03/21/17 06:55 03/21/17 06:55 Labs: Microbiology - Last 24 Hours (Table) 03/19/17 21:40 Blood Culture - Preliminary Blood No Growth after 48 hours Assessment and Plan Plan: Assessment Right upper lobe pneumonia Acute respiratory distress syndrome Left lower lobe mass, increased from last chest x-ray History of non-small cell lung cancer History of breast cancer status post bilateral mastectomy History of brain cancer Anxiety Plan Patient could be cleared for discharge from pulmonary standpoint. Patient will decide in the outpatient setting on whether she wants to go forth with chemo. The patient states she prefers to follow-up in the outpatient setting. Labs reviewed. Medications have been reviewed and will be continued as ordered. CT reviewed with the patient. Continue with pulmonary hygiene, coughing and deep breathing exercises, and supportive care. Supplemental oxygen to maintain oxygen saturations of 92% or better. Continue nebulizer treatments, add budesonide. Initiate and encourage incentive spirometer. Blood culture negative so far, obtain sputum culture. GI and DVT prophylaxis. We will continue to monitor labs/results and adjust treatment as necessary. Further recommendations pending. I performed an examination of the patient and discussed their management with the nurse practitioner. I have reviewed the nurse practitioner's note and agree with the documented findings and plan of care.
[2017-03-22 15:16] VITALS: BP 139/63; TEMP 97.9
[2017-03-22 16:06] VITALS: PULSE 84
[2017-03-22] MEDS ORDERED: LEVOFLOXACIN 750 MG TAB PO SCH (21:00)
== END 2017-03-22 18:00 | disposition home or self-care (01) | DRG 194 ==
LOC: EC 20:29 → 5ONC 23:02
PROVIDERS: ADMIT Family Medicine; ATTEND Family Medicine
DX: J18.9 Pneumonia, unspecified organism (principal); C34.32 Malignant neoplasm of lower lobe, left bronchus or lung; J80 Acute respiratory distress syndrome; C79.31 Secondary malignant neoplasm of brain; F41.9 Anxiety disorder, unspecified; K59.00 Constipation, unspecified; F32.9 Major depressive disorder, single episode, unspecified; Z87.891 Personal history of nicotine dependence; Z85.3 Personal history of malignant neoplasm of breast; Z79.899 Other long term (current) drug therapy; Z88.5 Allergy status to narcotic agent; Z80.49 Family history of malignant neoplasm of other genital organs
CPT/HCPCS: 36415; 71020; 71260; 80053; 81003; 83605; 85025; 85610; 85730; 86308; 87040; 94640

== ENCOUNTER 2017-04-24 10:45 | Inpatient (IN) | payer MEDICARE ==
[2017-04-24] MEDS ORDERED: SODIUM CHLORIDE 0.9% 1,000 ML IV STA (11:11)
[2017-04-24] MEDS ORDERED: SODIUM CHLORIDE 0.9% 1,000 ML IV ONE (11:11)
--- NOTE | 2017-04-24 11:46 | ED ---
Fever HPI - General Chief Complaint: Fever Stated Complaint: Fever Hx Lung Ca Sent by Taya Time Seen by Provider: 04/24/17 10:57 Source: patient Mode of arrival: wheelchair Limitations: no limitations - History of Present Illness Initial Comments: This is a 77-year-old female with a history of lung cancer who is being treated with palliative care. She presents emergency department because of a fever of 100.5. She states that she noticed it yesterday. She's had increased amount of cough as well. She denies any abdominal pain, nausea, vomiting, or diarrhea. She denies any dysuria or hematuria. She called her oncologist office who directed her to the emergency department. She is not currently on chemotherapy because she has failed treatment. At this time she is just undergoing palliative care and was told that she has between 6 months of the year to live. She was recently admitted with similar complaints and found to have a pneumonia. She feels that this is the same thing that is going on. - Related Data Home Medications Medication Instructions Recorded Confirmed ALPRAZolam [Alprazolam] 0.5 mg PO TID PRN 04/21/16 04/24/17 Acetaminophen with Codeine 1 tab PO Q4-6H PRN 04/21/16 04/24/17 [Acetaminophen-Cod #3 Tablet] Albuterol Inhaler [Ventolin Hfa 1 - 2 puff INHALATION RT-Q6H PRN 04/24/17 Inhaler] Albuterol Nebulized [Ventolin 2.5 mg INHALATION RT-Q6H PRN 04/24/17 04/24/17 Nebulized] Dexamethasone 2 mg PO DAILY 04/24/17 04/24/17 Allergies Allergy/AdvReac Type Severity Reaction Status Date / Time morphine AdvReac Hallucinati Verified 04/24/17 11:17 ons Review of Systems ROS Statement: Those systems with pertinent positive or pertinent negative responses have been documented in the HPI. ROS Other: All systems not noted in ROS Statement are negative. Past Medical History Past Medical History: Cancer, Pneumonia Additional Past Medical History / Comment(s): Non-small cell lung cancer, metastatic post chemotherapy/radiation, completed end of february 2015 chemotherapy end of february 2016, right lung pneumothorax, breast cancer History of Any Multi-Drug Resistant Organisms: None Reported Past Surgical History: Appendectomy, Breast Surgery, Hysterectomy, Tonsillectomy Additional Past Surgical History / Comment(s): bilateral mastectomy Past Anesthesia/Blood Transfusion Reactions: No Reported Reaction Past Psychological History: Anxiety, Depression Smoking Status: Former smoker Past Alcohol Use History: None Reported Past Drug Use History: None Reported - Past Family History Father Additional Family Medical History / Comment(s): pacemaker, triple bypass Mother Family Medical History: Cancer Additional Family Medical History / Comment(s): cervical and breast Daughter(s) Family Medical History: Cancer Additional Family Medical History / Comment(s): cervical cancer General Exam - General Exam Comments Initial Comments: Constitutional: Awake alert Appears comfortable Head: Normocephalic atraumatic Eyes: no conjunctival injection No scleral icterus EOMI Neck: No JVD Supple Heart: Regular rate rhythm normal S1-S2 no murmurs Lungs: There is right upper and middle lobe bronchial breath sounds without wheezing or rhonchi Abdomen: Soft nondistended nontender Extremities: Non edematous DP pulses intact Radial pulses intact Neuro: A&Ox3 No focal neurologic deficits Psych: Appropriate mood and affect Limitations: no limitations Course Vital Signs 04/24/17 04/24/17 04/24/17 10:53 11:19 12:01 Temperature 98.8 F 97.5 F L Pulse Rate 100 91 85 Respiratory 17 20 20 Rate Blood Pressure 105/60 96/55 112/56 O2 Sat by Pulse 96 96 96 Oximetry 04/24/17 13:31 Temperature 96.7 F L Pulse Rate 83 Respiratory 20 Rate Blood Pressure 121/58 O2 Sat by Pulse 95 Oximetry Medical Decision Making - Medical Decision Making This 77-year-old female to history of lung cancer who presents emergency department for fever and cough. Chest x-ray appeared to be unchanged from previous however is difficult to exclude any pneumonia. The patient does have a mild leukocytosis and lactic acid is mildly elevated as well. She was given a liter bolus and blood cultures were obtained. I started her on vancomycin and Zosyn. I like to bring her in the hospital. Dr. Marie accepted admission. Dr. Bain will be placed on consult. The patient and family were updated and agree. - Lab Data Result diagrams: 04/24/17 11:45 04/24/17 11:45 Lab Results 04/24/17 04/24/17 04/24/17 Range/Units 11:45 11:45 11:45 WBC 12.1 H (3.8-10.6) k/uL RBC 4.37 (3.80-5.40) m/uL Hgb 13.0 (11.4-16.0) gm/dL Hct 39.8 (34.0-46.0) % MCV 91.1 (80.0-100.0) fL MCH 29.7 (25.0-35.0) pg MCHC 32.6 (31.0-37.0) g/dL RDW 15.7 H (11.5-15.5) % Plt Count 512 H (150-450) k/uL Neutrophils % 92 % Lymphocytes % 3 % Monocytes % 4 % Eosinophils % 1 % Basophils % 0 % Neutrophils # 11.1 H (1.3-7.7) k/uL Lymphocytes # 0.3 L (1.0-4.8) k/uL Monocytes # 0.5 (0-1.0) k/uL Eosinophils # 0.1 (0-0.7) k/uL Basophils # 0.0 (0-0.2) k/uL Sodium 135 L (137-145) mmol/L Potassium 4.3 (3.5-5.1) mmol/L Chloride 98 (98-107) mmol/L Carbon Dioxide 26 (22-30) mmol/L Anion Gap 11 mmol/L BUN 17 (7-17) mg/dL Creatinine 0.93 (0.52-1.04) mg/dL Est GFR (MDRD) Af Amer >60 (>60 ml/min/1.73 sqM) Est GFR (MDRD) Non-Af 59 (>60 ml/min/1.73 sqM) Glucose 159 H (74-99) mg/dL Plasma Lactic Acid Ralf 2.6 H* (0.7-2.0) mmol/L Calcium 9.3 (8.4-10.2) mg/dL Total Bilirubin 0.5 (0.2-1.3) mg/dL AST 22 (14-36) U/L ALT 31 (9-52) U/L Alkaline Phosphatase 131 H (38-126) U/L Total Protein 6.4 (6.3-8.2) g/dL Albumin 3.7 (3.5-5.0) g/dL Urine Color Urine Appearance (Clear) Urine pH (5.0-8.0) Ur Specific Hector (1.001-1.035) Urine Protein (Negative) Urine Glucose (UA) (Negative) Urine Ketones (Negative) Urine Blood (Negative) Urine Nitrite (Negative) Urine Bilirubin (Negative) Urine Urobilinogen (<2.0) mg/dL Ur Leukocyte Esterase (Negative) Urine RBC (0-5) /hpf Urine WBC (0-5) /hpf Ur Squamous Epith Cells (0-4) /hpf Urine Bacteria (None) /hpf Urine Mucus (None) /hpf 04/24/17 Range/Units 11:56 WBC (3.8-10.6) k/uL RBC (3.80-5.40) m/uL Hgb (11.4-16.0) gm/dL Hct (34.0-46.0) % MCV (80.0-100.0) fL MCH (25.0-35.0) pg MCHC (31.0-37.0) g/dL RDW (11.5-15.5) % Plt Count (150-450) k/uL Neutrophils % % Lymphocytes % % Monocytes % % Eosinophils % % Basophils % % Neutrophils # (1.3-7.7) k/uL Lymphocytes # (1.0-4.8) k/uL Monocytes # (0-1.0) k/uL Eosinophils # (0-0.7) k/uL Basophils # (0-0.2) k/uL Sodium (137-145) mmol/L Potassium (3.5-5.1) mmol/L Chloride (98-107) mmol/L Carbon Dioxide (22-30) mmol/L Anion Gap mmol/L BUN (7-17) mg/dL Creatinine (0.52-1.04) mg/dL Est GFR (MDRD) Af Amer (>60 ml/min/1.73 sqM) Est GFR (MDRD) Non-Af (>60 ml/min/1.73 sqM) Glucose (74-99) mg/dL Plasma Lactic Acid Ralf (0.7-2.0) mmol/L Calcium (8.4-10.2) mg/dL Total Bilirubin (0.2-1.3) mg/dL AST (14-36) U/L ALT (9-52) U/L Alkaline Phosphatase (38-126) U/L Total Protein (6.3-8.2) g/dL Albumin (3.5-5.0) g/dL Urine Color Yellow Urine Appearance Clear (Clear) Urine pH 5.5 (5.0-8.0) Ur Specific Hector 1.011 (1.001-1.035) Urine Protein Negative (Negative) Urine Glucose (UA) Negative (Negative) Urine Ketones Negative (Negative) Urine Blood Small H (Negative) Urine Nitrite Negative (Negative) Urine Bilirubin Negative (Negative) Urine Urobilinogen <2.0 (<2.0) mg/dL Ur Leukocyte Esterase Negative (Negative) Urine RBC 1 (0-5) /hpf Urine WBC 1 (0-5) /hpf Ur Squamous Epith Cells 1 (0-4) /hpf Urine Bacteria Rare H (None) /hpf Urine Mucus Rare H (None) /hpf Disposition Clinical Impression: HCAP (healthcare-associated pneumonia), Lung cancer Disposition: ADMITTED IP TO THIS [facility] Condition: Stable Referrals: Nnamdi Tam MD [Primary Care Provider] - 1-2 days
--- NOTE | 2017-04-24 11:47 | XR ---
EXAMINATION TYPE: XR chest 2V DATE OF EXAM: 04/24/2017 COMPARISON: 03/20/17 HISTORY: Shortness of breath TECHNIQUE: Frontal and lateral views of the chest are obtained. FINDINGS: Left basilar mass with adjacent pulmonary nodules persist. Left hilar nodule noted as well as. There is right suprahilar mass with right upper lobe volume loss also appears unchanged. Heart size is stable. Mediastinal structures are stable and grossly unremarkable. No evidence for hilar prominence. Degenerative changes dorsal spine. IMPRESSION: 1. Essentially stable appearance of the chest.
[2017-04-24] MEDS ORDERED: PIPERACILLIN-TAZOBACTAM 3.375 GM in DEXTROSE/WATER 1 50ML.BAG IVPB STA (12:00)
[2017-04-24] MEDS ORDERED: IV VANCOMYCIN PER PHARMACY 1 EACH MISC MISCELLANE PRN (12:01)
[2017-04-24] MEDS ORDERED: VANCOMYCIN 1,250 MG in SODIUM CHLORIDE 0.9% 250 ML IVPB STA (12:04)
[2017-04-24 12:14] LABS: Basophils % (A) 0 %; CH 30.1; CHCM 33.2; Eosinophils # (A) 0.1 k/uL (0-0.7); Eosinophils % (A) 1 %; HCT 39.8 % (34.0-46.0); HDW 2.52; Luc % (Auto) 1; Lymphocytes # (A) 0.3 k/uL (1.0-4.8); Lymphocytes % (A) 3 %; MCH 29.7 pg (25.0-35.0); MCHC 32.6 g/dL (31.0-37.0); MCV 91.1 fL (80.0-100.0); Mean Platelet Volume 6.4; Monocytes # (A) 0.5 k/uL (0-1.0); Monocytes % (A) 4 %; Neutrophils # (A) 11.1 k/uL (1.3-7.7); Neutrophils % (A) 92 %; RBC 4.37 m/uL (3.80-5.40); RDW 15.7 % (11.5-15.5); WBC 12.1 k/uL (3.8-10.6); WBC (Perox) 12.43
[2017-04-24 12:21] LABS: Appearance,Urine Clear (Clear); Bacteria,Urine Rare /hpf; Bilirubin,Urine Negative (Negative); Glucose,Urine (UA) Negative (Negative); Ketones,Urine Negative (Negative); Leukocyte Esterase,Urine Negative (Negative); Mucus,Urine Rare /hpf; Nitrite,Urine Negative (Negative); PH, Urine 5.5 (5.0-8.0); Particle Count 3351; Protein,Urine Negative (Negative); RBC,Urine 1 /hpf (0-5); Specific Gravity,Urine 1.011 (1.001-1.035); Squamous Epithelial Cell,Urine 1 /hpf (0-4); UA Billing (MACRO vs. MICRO) MICRO; Urobilinogen,Urine <2.0 mg/dL (<2.0); WBC,Urine 1 /hpf (0-5)
[2017-04-24 12:27] LABS: ALT 31 U/L (9-52); AST 22 U/L (14-36); Alkaline Phosphatase 131 U/L (38-126); Anion Gap 11 mmol/L; Blood Urea Nitrogen 17 mg/dL (7-17); Calcium 9.3 mg/dL (8.4-10.2); Carbon Dioxide 26 mmol/L (22-30); Chloride 98 mmol/L (98-107); Glucose 159 mg/dL (74-99); Non-African American GFR(MDRD) 59 (>60 ml/min/1.73 sqM); Potassium 4.3 mmol/L (3.5-5.1); Sodium 135 mmol/L (137-145); Total Bilirubin 0.5 mg/dL (0.2-1.3); Total Protein 6.4 g/dL (6.3-8.2)
[2017-04-24] MEDS ORDERED: NALOXONE 0.4 MG/ML 1 ML VIAL IV PRN (13:42)
[2017-04-24] MEDS ORDERED: ACETAMINOPHEN TAB 325 MG TAB PO PRN (13:42)
[2017-04-24 15:06] VITALS: BMI 23.8
[2017-04-24] MEDS: HYDROcodone/APAP 5-325MG 1 EACH TAB PO PRN ×2 (16:01→20:36)
[2017-04-24] MEDS: ALPRAZolam 0.5 MG TAB PO PRN ×2 (16:01→23:53)
[2017-04-24] MEDS: PIPERACILLIN-TAZOBACTAM 3.375 GM in DEXTROSE/WATER 1 50ML.BAG IVPB SCH (20:36)
[2017-04-24] MEDS ORDERED: CHERRY FLAVOR 60 ML BOTTLE PO SCH (23:00)
[2017-04-24] MEDS: VANCOMYCIN ORAL SOLUTION 250 MG/5 ML BOTTLE PO SCH (23:49)
[2017-04-24] MEDS: CHERRY FLAVOR 60 ML BOTTLE PO SCH (23:50)
[2017-04-25] MEDS: PIPERACILLIN-TAZOBACTAM 3.375 GM in DEXTROSE/WATER 1 50ML.BAG IVPB SCH ×3 (03:44→20:10)
[2017-04-25] MEDS: VANCOMYCIN 1,000 MG in SODIUM CHLORIDE 0.9% 250 ML IVPB SCH (05:38)
[2017-04-25] MEDS: VANCOMYCIN ORAL SOLUTION 250 MG/5 ML BOTTLE PO SCH ×3 (06:38→19:37)
[2017-04-25] MEDS: CHERRY FLAVOR 60 ML BOTTLE PO SCH ×3 (06:39→19:37)
[2017-04-25] MEDS: ALBUTEROL NEBULIZED 2.5 MG/3 ML INHALATION PRN (07:49)
[2017-04-25 08:20] LABS: Anion Gap 9 mmol/L; Blood Urea Nitrogen 12 mg/dL (7-17); Calcium 8.8 mg/dL (8.4-10.2); Carbon Dioxide 21 mmol/L (22-30); Chloride 106 mmol/L (98-107); Glucose 92 mg/dL (74-99); Non-African American GFR(MDRD) >60 (>60 ml/min/1.73 sqM); Potassium 3.2 mmol/L (3.5-5.1); Sodium 136 mmol/L (137-145)
[2017-04-25] MEDS: Acetaminophen-Codeine 300-30mg TAB PO PRN ×2 (09:05→19:35)
[2017-04-25] MEDS: DEXAMETHASONE 2 MG TAB PO SCH (09:05)
--- NOTE | 2017-04-25 13:28 | HP ---
CHIEF COMPLAINT: 77 -year-old white female with history of lung cancer admitted to the hospital with fever of 100.5, elevated lactic acid, found to have possible right upper lobe pneumonia, history of lung cancer, due to generalized debility and chemotherapy that she is on and failing outpatient treatment. She was admitted to the hospital. She was told she has six months to a year to live. She has similar complaints from before. She thought that was diagnosed with pneumonia. Medications: At home include: 1. Ventolin inhaler. 2. Tylenol #3. 3. Alprazolam. ALLERGIES: MORPHINE. 14 point review of systems negative except for mentioned in the history of present illness. PAST MEDICAL HISTORY: Lung cancer, non-small cell lung cancer, status post chemotherapy, radiation, ( ) 2014, chemotherapy ( ) 2016, right lung pneumothorax. History of breast cancer, nonsmall cell lung cancer. PAST SURGICAL HISTORY: Appendectomy, breast surgery, hysterectomy, tonsillectomy , bilateral mastectomy. PSYCH HISTORY: She has anxiety and depression, history of smoking. White count 12.1, hemoglobin 13.0. Sodium 135, potassium 4.3, platelets 159. Lungs shows scattered rhonchi and wheeze. Blood pressure 105/50 to 112/56. Temp 98.8, pulse 90s to 100s. Respiratory rate 17 to 20. Abdomen is soft. Extremities no cyanosis, clubbing or edema. Neurological alert and oriented times three. Psych: Fair mood and affect. GI: Soft, nontender. HEENT: Head normal. Scleral icterus. Neck is supple. Constitutional: She is alert, awake, comfortable. Normocephalic, atraumatic. Head and neck exam. ASSESSMENT: 1. Pneumonia, right upper lobe with systemic inflammatory response syndrome. 2. Lung cancer. 3. Chronic obstructive pulmonary disease. PLAN: Zosyn, Vancomycin will be given. Infectious disease consult. Dr. Garcia from oncology will be done. History of pneumothorax due to chronic obstructive pulmonary disease. Labs reviewed. Empiric antibiotics for ( ) will be done. Lung cancer, oncologist consulted. Home medicines will be ordered. [facility]
[2017-04-25] MEDS: HEPARIN SODIUM,PORCINE 5,000 UNIT/ML 1 ML VIAL SQ SCH (15:17)
[2017-04-25] MEDS ORDERED: POTASSIUM CHLORIDE ER 20 MEQ TAB.ER PO STA (15:23)
--- NOTE | 2017-04-25 18:53 | P.CONS ---
History of Present Illness - Reason for Consult Consult date: 04/25/17 lung cancer Requesting physician: Markel Amaro - Chief Complaint diarrhea, fever - History of Present Illness Evon is a very pleasant female pt of Dr. 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 She presented with progressive cough and dyspnea for about 4 months, CXR on 11/01/15 was suspicious for RUL lung mass , CT chest 11/11/15 revealed a large RUL perihilar mass extending from the hilum to pleural surface,8.3cm x 9.1cm and small non specific 4-7mm scattered left lung nodules, bronch on showed collapse of RUL, path-adenocarcinoma. Staging PET/CT suspicious uptake noted in aforementioned areas, MRI brain negative for mets, , EGFR/ALK/ROS-1 mutation were negative. Pt was not felt to be surgical candidate due to tumor extension. Concurrent chemo/XRT started 01/03. Pt had drug changes, delay in treatment due to side effects and weakness, completed 4 cycles and radiation therapy completed on 02/21/16. Treatment f/u CT chest March 2016 revealed cavitary changes in RUL mass, no progression. Monitoring CT chest Jun 2016 revealed stable RUL cavitary lesions, increase in size of multiple small RONAK nodules and new nodule in left lung, PET positive for disease progression. She started nivolumab, In November CT was stable. Late November pt had c/o dizziness, multiple brain lesions found. Treatment was held and she completed whole brain radiation December 2016 and soon after resumed nivolumab. Treatment f/u brain MRI 02/07/17 revealed improvement of brain metastasis. Pt continued on treatment, last dose was on 03/16, treatment f/u CT chest on 03/[address] Bain met with pt and on 03/30 and referral at that time was made to hospice. When seen today pt states coming to the hospital because of fever and diarrhea, she states her appetite is poor, constant nausea, no vomiting, she has a cough but "can't get anything out", denies dysuria, bleeding, rectal pain or abd cramping, she states diarrhea is better today then yesterday. When asked when was her last treatment-as I have not seen her since her last hospital admit-she stated that is was just recently. She did not mention to me that she was on hospice. Review of Systems All systems: negative Constitutional: Reports as per HPI Past Medical History Past Medical History: Cancer, Pneumonia Additional Past Medical History / Comment(s): Non-small cell lung cancer, metastatic post chemotherapy/radiation, completed end of february 2015 chemotherapy end of february 2016, right lung pneumothorax, breast cancer History of Any Multi-Drug Resistant Organisms: None Reported Past Surgical History: Appendectomy, Breast Surgery, Hysterectomy, Tonsillectomy Additional Past Surgical History / Comment(s): bilateral mastectomy. breast reconstruction Past Anesthesia/Blood Transfusion Reactions: No Reported Reaction Past Psychological History: Anxiety, Depression Additional Psychological History / Comment(s): r/t new diagnosis Smoking Status: Former smoker Past Alcohol Use History: None Reported Past Drug Use History: None Reported - Past Family History Father Additional Family Medical History / Comment(s): pacemaker, triple bypass Mother Family Medical History: Cancer Additional Family Medical History / Comment(s): cervical and breast Daughter(s) Family Medical History: Cancer Additional Family Medical History / Comment(s): cervical cancer Medications and Allergies Home Medications Medication Instructions Recorded Confirmed Type ALPRAZolam [Alprazolam] 0.5 mg PO TID PRN 04/21/16 04/24/17 History Acetaminophen with Codeine 1 tab PO Q4-6H PRN 04/21/16 04/24/17 History [Acetaminophen-Cod #3 Tablet] Albuterol Inhaler [Ventolin Hfa 1 - 2 puff INHALATION RT-Q6H PRN 04/24/17 History Inhaler] Albuterol Nebulized [Ventolin 2.5 mg INHALATION RT-Q6H PRN 04/24/17 04/24/17 History Nebulized] Dexamethasone 2 mg PO DAILY 04/24/17 04/24/17 History Allergies Allergy/AdvReac Type Severity Reaction Status Date / Time morphine AdvReac Hallucinati Verified 04/24/17 11:17 ons Physical Exam Vitals: Vital Signs Temp Pulse Pulse Pulse Resp BP Pulse Ox 04/25/17 16:55 14 04/25/17 15:54 98.2 F 86 86 14 142/68 04/25/17 08:00 79 04/25/17 07:49 78 94 L 04/25/17 07:00 98.1 F 77 16 115/77 98 04/24/17 23:00 97.0 F L 81 16 112/58 100 Intake and Output 04/25/17 04/25/17 04/25/17 06:59 14:59 22:59 Intake Total 590 850 Output Total 5 Balance 590 845 Intake: Intake, IV Titration 850 Amount Piperacillin-Tazobactam 3 50 .375 gm In Dextrose/Water 1 50ml.bag @ 12.5 mls/hr IVPB Q8H [facility] Rx#: [id number] Sodium Chloride 0.9% 1, 800 000 ml @ 100 mls/hr IV . Q10H [facility] Rx#:[id number] Oral 590 Output: Stool 5 Other: # Voids 4 # Bowel Movements 3 Weight 57.153 kg Patient Weight 04/26/17 06:59 Weight 57.153 kg - Constitutional General appearance: average body habitus, cooperative, no acute distress - EENT dry mouth, scant thrush Eyes: anicteric sclerae, EOMI, PERRLA, normal appearance ENT: thrush - Neck Neck: no lymphadenopathy - Respiratory Respiratory: bilateral: diminished - Cardiovascular Rhythm: regular Heart sounds: normal: S1, S2 Abnormal Heart Sounds: no systolic murmur, no diastolic murmur, no rub, no S3 Gallop, no S4 Gallop, no click, no other leg Peripheral Edema: bilateral: None - Gastrointestinal General gastrointestinal: no absent bowel sounds, no decreased bowel sounds, no distended, no hepatomegaly, no hyperactive bowel sounds, normal bowel sounds, no organomegaly, no rigid, no scaphoid, soft, no splenomegaly, no tenderness, no umbilical hernia, no ventral hernia Localized gastrointestinal: tender: diffuse (mild) - Integumentary Integumentary: normal - Neurologic Neurologic: CNII-XII intact - Musculoskeletal Musculoskeletal: generalized weakness, strength equal bilaterally - Psychiatric Psychiatric: A&O x's 3, appropriate affect, intact judgment & insight Results CBC & Chem 7: 04/24/17 11:45 04/25/17 07:17 Labs: Abnormal Lab Results - Last 24 Hours (Table) 04/24/17 04/25/17 Range/Units 21:30 07:17 Sodium 136 L (137-145) mmol/L Potassium 3.2 L (3.5-5.1) mmol/L Carbon Dioxide 21 L (22-30) mmol/L C. difficile (EIA) Intrp Positive A (Negative) Microbiology - Last 24 Hours (Table) 04/24/17 11:56 Urine Culture - Preliminary Urine,Voided Group D Enterococcus 04/24/17 11:45 Blood Culture - Preliminary Blood No Growth after 24 hours Chest x-ray: report reviewed Assessment and Plan (1) Non-small cell cancer of right lung Narrative/Plan: Office notes reviewed after seeing pt. Pt is confused as she told me she had chemo recently, she was last seen in our office by Dr. Bain at the end of March. They had a long discussion at that time about future treatment for her metastatic NSCLC as pt failed multiple lines of therapy and her PS was continuing to decline. A referral was made to hospice at that time. There are no plans for treatment of cancer. Recommend treating infections and symptoms. Social Work will be consulted to confirm with if pt is on hospice at home and if there are any further needs in the home. Status: Chronic
[2017-04-25] MEDS: ALPRAZolam 0.5 MG TAB PO PRN (19:34)
[2017-04-26] MEDS: CHERRY FLAVOR 60 ML BOTTLE PO SCH ×5 (00:04→22:59)
[2017-04-26] MEDS: VANCOMYCIN 1,000 MG in SODIUM CHLORIDE 0.9% 250 ML IVPB SCH ×2 (00:05→17:43)
[2017-04-26] MEDS: VANCOMYCIN ORAL SOLUTION 250 MG/5 ML BOTTLE PO SCH ×5 (00:05→22:59)
[2017-04-26] MEDS: HEPARIN SODIUM,PORCINE 5,000 UNIT/ML 1 ML VIAL SQ SCH ×4 (00:10→22:59)
[2017-04-26] MEDS: PIPERACILLIN-TAZOBACTAM 3.375 GM in DEXTROSE/WATER 1 50ML.BAG IVPB SCH ×3 (04:00→19:57)
[2017-04-26] MEDS: Acetaminophen-Codeine 300-30mg TAB PO PRN ×4 (05:42→19:57)
[2017-04-26] MEDS: ALPRAZolam 0.5 MG TAB PO PRN ×3 (05:42→19:57)
[2017-04-26 06:49] LABS: CH 30.7; HCT 32.5 % (34.0-46.0); HDW 2.48; HGB 10.6 gm/dL (11.4-16.0); MCH 30.5 pg (25.0-35.0); MCHC 32.6 g/dL (31.0-37.0); MCV 93.5 fL (80.0-100.0); Mean Platelet Volume 7.1; RBC 3.47 m/uL (3.80-5.40); RDW 15.9 % (11.5-15.5); WBC 7.9 k/uL (3.8-10.6)
[2017-04-26 07:11] LABS: Anion Gap 7 mmol/L; Blood Urea Nitrogen 7 mg/dL (7-17); Calcium 8.8 mg/dL (8.4-10.2); Carbon Dioxide 24 mmol/L (22-30); Chloride 108 mmol/L (98-107); Glucose 84 mg/dL (74-99); Non-African American GFR(MDRD) >60 (>60 ml/min/1.73 sqM); Potassium 3.4 mmol/L (3.5-5.1); Sodium 139 mmol/L (137-145)
[2017-04-26] MEDS ORDERED: POTASSIUM CHLORIDE ER 20 MEQ TAB.ER PO STA (07:41)
[2017-04-26] MEDS: FAMOTIDINE 20 MG TAB PO SCH (08:44)
[2017-04-26] MEDS: DEXAMETHASONE 2 MG TAB PO SCH (08:44)
--- NOTE | 2017-04-26 09:17 | P.PN ---
Subjective Principal diagnosis: Patient seen and evaluated examined during the rounds she has a history of lung cancer admitted to the hospital with fever and diarrhea suspected to have C. 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 She presented with progressive cough and dyspnea for about 4 months, CXR on 11/01/15 was suspicious for RUL lung mass, CT chest 11/11/15 revealed a large RUL perihilar mass extending from the hilum to pleural surface,8.3cm x 9.1cm and small non specific 4-7mm scattered left lung nodules, bronch on showed collapse of RUL, path-adenocarcinoma. Staging PET/CT suspicious uptake noted in aforementioned areas, MRI brain negative for mets, , EGFR/ALK/ROS-1 mutation were negative. Pt was not felt to be surgical candidate due to tumor extension. Concurrent chemo/XRT started 01/04/16. Pt had drug changes, delay in treatment due to side effects and weakness, completed 4 cycles and radiation therapy completed on 02/21/16. Treatment f/u CT chest March 2016 revealed cavitary changes in RUL mass, no progression. Monitoring CT chest Jun 2016 revealed stable RUL cavitary lesions, increase in size of multiple small RONAK nodules and new nodule in left lung, PET positive for disease progression. She started nivolumab, In November CT was stable. Late November pt had c/o dizziness, multiple brain lesions found. Treatment was held and she completed whole brain radiation December 2016 and soon after resumed nivolumab. Treatment f/u brain MRI 02/07/17 revealed improvement of brain metastasis. Pt continued on treatment, last dose was on 03/16, treatment f/u CT chest on 03/[address] Bain met with pt and on 03/30 and referral at that time was made to hospice. Objective - Vital Signs Vital signs: Vital Signs Temp 98.6 F 04/26/17 07:00 Pulse 86 04/26/17 07:00 Resp 18 04/26/17 07:00 BP 119/74 04/26/17 07:00 Pulse Ox 94 L 04/26/17 07:00 Intake & Output 04/25/17 04/26/17 04/26/17 18:59 06:59 18:59 Intake Total 850 450 Output Total 5 7 Balance 845 443 Weight 57.153 kg Intake: Intake, IV Titration 850 50 Amount Piperacillin-Tazobactam 3 50 50 .375 gm In Dextrose/Water 1 50ml.bag @ 12.5 mls/hr IVPB Q8H [facility] Rx#: [id number] Sodium Chloride 0.9% 1, 800 000 ml @ 100 mls/hr IV . Q10H [facility] Rx#:[id number] Oral 400 Output: Stool 5 7 Other: # Voids 3 # Bowel Movements 1 - Exam - Constitutional General appearance: average body habitus, cooperative, no acute distress - EENT dry mouth, scant thrush Eyes: anicteric sclerae, EOMI, PERRLA, normal appearance ENT: thrush - Neck Neck: no lymphadenopathy - Respiratory Respiratory: bilateral: diminished - Cardiovascular Rhythm: regular Heart sounds: normal: S1, S2 Abnormal Heart Sounds: no systolic murmur, no diastolic murmur, no rub, no S3 Gallop, no S4 Gallop, no click, no other leg Peripheral Edema: bilateral: None - Gastrointestinal General gastrointestinal: no absent bowel sounds, no decreased bowel sounds, no distended, no hepatomegaly, no hyperactive bowel sounds, normal bowel sounds, no organomegaly, no rigid, no scaphoid, soft, no splenomegaly, no tenderness, no umbilical hernia, no ventral hernia Localized gastrointestinal: tender: diffuse (mild) - Integumentary Integumentary: normal - Neurologic Neurologic: CNII-XII intact - Musculoskeletal Musculoskeletal: generalized weakness, strength equal bilaterally - Psychiatric Psychiatric: A&O x's 3, appropriate affect, intact judgment & insight - Labs CBC & Chem 7: 04/26/17 06:32 04/26/17 06:32 Labs: Abnormal Lab Results - Last 24 Hours (Table) 04/26/17 04/26/17 Range/Units 06:32 06:32 RBC 3.47 L (3.80-5.40) m/uL Hgb 10.6 L (11.4-16.0) gm/dL Hct 32.5 L (34.0-46.0) % RDW 15.9 H (11.5-15.5) % Potassium 3.4 L (3.5-5.1) mmol/L Chloride 108 H (98-107) mmol/L Microbiology - Last 24 Hours (Table) 04/24/17 11:56 Urine Culture - Preliminary Urine,Voided Group D Enterococcus 04/24/17 11:45 Blood Culture - Preliminary Blood No Growth after 24 hours - Imaging and Cardiology Chest x-ray: image reviewed CT scan - chest: image reviewed (Chest x-ray performed 820 217 revealed presence of left basilar mass with nodular appearance along with left hilar left not nodules not much change compared to prior exam the right-sided suprahilar mass with the right upper lobe volume loss overall not much changed, computed tomography scan of the chest performed on 04/22 reviewed as well essentially not much changes compared to prior CAT scan) Assessment and Plan Plan: Sirs-like process likely related to C. 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 difficile respectively, we will add by mouth Flagyl as well, would continue gentle rehydration and electrolyte balance and replace potassium Time with Patient: Greater than 30
[2017-04-26] MEDS: ALBUTEROL NEBULIZED 2.5 MG/3 ML INHALATION PRN ×2 (12:25→15:46)
--- NOTE | 2017-04-26 13:55 | P.PN ---
Subjective Principal diagnosis: 77-year-old female seen and evaluated at bedside. The patient is feeling well and denies any complaints. She states her diarrhea has slowed down and she has not had a bowel movement today. Her C. diff sample from 2016 was positive and the patient has been started on oral vancomycin. She denies any shortness of breath but states she is still receiving breathing treatments. Patient denies chest pain, nausea, or vomiting. Her potassium was 3.2 yesterday and the patient was given 40 mEq of potassium. Her potassium remains low this morning at 3.4. An additional 40 mEq of potassium was ordered. We'll recheck in the a.m. Hospital Course: This 77-year-old female who presented to the emergency room on 2016 for fever and difficulty in breathing. She has a history of non-small cell lung cancer and has underwent chemotherapy and radiation. The patient was admitted for the possibility of pneumonia in the right upper lobe with systemic inflammatory response syndrome. Dr. Garcia, oncology was consulted due to her history of lung cancer. There are no plans for further treatment at this time. The patient was placed on Zosyn and vancomycin. Pulmonary was consulted and also added Flagyl to her regimen. The patient was hypokalemic with potassium of 3.2. She received supplementation of 40 mEq. Her potassium this morning was 3.4. An additional 40 mEq supplementation was ordered. The patient states her appetite is good however due to her chemotherapy and radiation she states food does not taste the same her and she does not eat as much as she used to. The patient was started on oral supplementation with Magic cups. The patient's vital signs have remained stable upon admission. Her latest blood pressure was 119/74. And her last temperature was 98.6. Objective - Vital Signs Vital signs: Vital Signs Temp 98.6 F 04/26/17 07:00 Pulse 80 04/26/17 12:35 Resp 18 04/26/17 07:00 BP 119/74 04/26/17 07:00 Pulse Ox 94 L 04/26/17 07:00 Intake & Output 04/25/17 04/26/17 04/26/17 18:59 06:59 18:59 Intake Total 850 450 Output Total 5 7 Balance 845 443 Weight 57.153 kg Intake: Intake, IV Titration 850 50 Amount Piperacillin-Tazobactam 3 50 50 .375 gm In Dextrose/Water 1 50ml.bag @ 12.5 mls/hr IVPB Q8H [facility] Rx#: [id number] Sodium Chloride 0.9% 1, 800 000 ml @ 100 mls/hr IV . Q10H [facility] Rx#:[id number] Oral 400 Output: Stool 5 7 Other: # Voids 3 # Bowel Movements 1 - Exam GENERAL: Alert and oriented. Appears in no acute distress. Pleasant. RESPIRATORY: Lungs clear bilaterally but diminished. No use of accessory muscles. Patient maintaining oxygen saturation greater than 92%. CARDIOVASCULAR: S1 and S2 noted. No murmurs auscultated. No JVD noted. EXTREMITIES: No edema noted. Palpable pedal pulses +2. ABDOMEN: No distention noted. Abdomen soft and round. Normal active bowel sounds auscultated 4 quadrants. No pain or tenderness noted upon palpation. - Labs CBC & Chem 7: 04/26/17 06:32 04/26/17 06:32 Labs: Abnormal Lab Results - Last 24 Hours (Table) 04/26/17 04/26/17 Range/Units 06:32 06:32 RBC 3.47 L (3.80-5.40) m/uL Hgb 10.6 L (11.4-16.0) gm/dL Hct 32.5 L (34.0-46.0) % RDW 15.9 H (11.5-15.5) % Potassium 3.4 L (3.5-5.1) mmol/L Chloride 108 H (98-107) mmol/L Microbiology - Last 24 Hours (Table) 04/24/17 11:56 Urine Culture - Preliminary Urine,Voided Group D Enterococcus 04/24/17 11:45 Blood Culture - Preliminary Blood No Growth after 24 hours Assessment and Plan Plan: ASSESSMENT: 1. 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 Acute on chronic hypoxic respiratory failure 3. Pneumonia, suspect right upper lobe, present on admission 4. Mild leukocytosis, present on admission, resolved 5. Hypokalemia, likely due to C. diff, resolving 6. Chronic obstructive pulmonary disease, chronic 7. C. Difficile Infection, present on admission 8. Urinary tract infection, urine culture positive for Group D Enterococcus PLAN: -Continue antibiotics: Zosyn, Vanco, and Flagyl -Replace potassium. 40 mEq ordered. Will recheck in the morning -DVT prophylaxis: Patient on heparin 5000 units subcu -GI prophylaxis: Patient receiving Pepcid 20 mg daily -Encourage increased oral intake -Oncology on consult and appreciate recommendations and input -Pulmonary on consult and appreciate recommendations and input -Anticipate discharge within the next 24 hours The above impression and plan of care have been discussed and directed by signing physician. Hanane Maradiaga, nurse practitioner, acting as scribe for signing physician.
[2017-04-26] MEDS: metroNIDAZOLE 500 MG TAB PO SCH ×2 (15:57→21:18)
[2017-04-26 22:54] VITALS: TEMP 97.8
[2017-04-27] MEDS: ALPRAZolam 0.5 MG TAB PO PRN ×3 (04:41→12:28)
[2017-04-27] MEDS: PIPERACILLIN-TAZOBACTAM 3.375 GM in DEXTROSE/WATER 1 50ML.BAG IVPB SCH (04:41)
[2017-04-27] MEDS: Acetaminophen-Codeine 300-30mg TAB PO PRN ×3 (04:44→12:28)
[2017-04-27] MEDS: VANCOMYCIN ORAL SOLUTION 250 MG/5 ML BOTTLE PO SCH ×2 (06:16→12:14)
[2017-04-27] MEDS: CHERRY FLAVOR 60 ML BOTTLE PO SCH ×2 (06:16→12:14)
--- NOTE | 2017-04-27 08:15 | P.DS ---
Providers Date of admission: 04/24/17 13:42 Expected date of discharge: 04/27/17 Attending physician: Salvador Holt Consults: 04/24/17 13:43 Consult Physician Routine Consulting Provider: Desmond Bain Consult Reason/Comments: Lung CA, Pneumonia Do you want consulting provider notified?: Yes 04/24/17 16:43 Consult Physician Routine Consulting Provider: Anabel Ybarra Consult Reason/Comments: hcap pneumonia Do you want consulting provider notified?: Yes Primary care physician: [facility] Course: Hospital Course: This 77-year-old female who presented to the emergency room on 2016 for fever and difficulty in breathing. She has a history of non-small cell lung cancer and has underwent chemotherapy and radiation. The patient was admitted for the possibility of pneumonia in the right upper lobe with systemic inflammatory response syndrome. Dr. Garcia, oncology was consulted due to her history of lung cancer. There are no plans for further treatment at this time. The patient was placed on Zosyn and vancomycin. Pulmonary was consulted and also added Flagyl to her regimen. The patient was hypokalemic with potassium of 3.2. She received supplementation of 40 mEq. Her potassium this morning was 3.4. An additional 40 mEq supplementation was ordered. The patient states her appetite is good however due to her chemotherapy and radiation she states food does not taste the same her and she does not eat as much as she used to. The patient was started on oral supplementation with Magic cups. The patient's vital signs have remained stable upon admission. Her latest blood pressure was 105/60. And her last temperature was 97.8. Infectious disease was consulted to see patient for discharge. A repeat UA was ordered which was negative for a UTI. Dr. Hercules recommends sending the patient home on vancomycin 250 mg by mouth every 6 hours 14 days. DISCHARGE DIAGNOSIS: 1. 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 Acute on chronic hypoxic respiratory failure, stable at discharge 3. Pneumonia, suspect right upper lobe, present on admission, resolved 4. Mild leukocytosis, present on admission, resolved 5. Hypokalemia, likely due to C. diff, resolved 6. Chronic obstructive pulmonary disease, chronic 7. C. Difficile Infection, present on admission, acute 8. Urinary tract infection, urine culture positive for Group D Enterococcus, resolved The above impression and plan of care have been discussed and directed by signing physician. Hanane Maradiaga, nurse practitioner, acting as scribe for signing physician. Patient Condition at Discharge: Stable Plan - Discharge Summary New Discharge Prescriptions: New Vancomycin Oral Solution 250 mg PO Q6HR #280 ml Continue Acetaminophen with Codeine [Acetaminophen-Cod #3 Tablet] 1 tab PO Q4-6H PRN PRN Reason: Pain Or Fever > 100.5 ALPRAZolam [Alprazolam] 0.5 mg PO TID PRN PRN Reason: Anxiety Albuterol Nebulized [Ventolin Nebulized] 2.5 mg INHALATION RT-Q6H PRN PRN Reason: Shortness Of Breath Albuterol Inhaler [Ventolin Hfa Inhaler] 1 - 2 puff INHALATION RT-Q6H PRN PRN Reason: Shortness Of Breath Dexamethasone 2 mg PO DAILY Discharge Medication List ALPRAZolam [Alprazolam] 0.5 mg PO TID PRN 04/21/16 [History] Acetaminophen with Codeine [Acetaminophen-Cod #3 Tablet] 1 tab PO Q4-6H PRN [History] Albuterol Inhaler [Ventolin Hfa Inhaler] 1 - 2 puff INHALATION RT-Q6H PRN [History] Albuterol Nebulized [Ventolin Nebulized] 2.5 mg INHALATION RT-Q6H PRN 04/24/17 [ History] Dexamethasone 2 mg PO DAILY 04/24/17 [History] Vancomycin Oral Solution 250 mg PO Q6HR #280 ml 04/27/17 [Rx] Follow up Appointment(s)/Referral(s): Salvador Holt MD [STAFF PHYSICIAN] - 3 Days Ben Hercules MD [STAFF PHYSICIAN] - 1 Week Nnamdi Tam MD [Primary Care Provider] - 1-2 days Discharge Disposition: HOME SELF-CARE
--- NOTE | 2017-04-27 08:37 | CONS ---
DATE OF CONSULTATION: 04/25/17 REASON FOR CONSULT: Pneumonia, sepsis. HISTORY OF PRESENT ILLNESS: Evon Toribio is a 77 -year-old female who was seen , evaluated and examined on the oncology unit. This patient came into the hospital with abdominal discomfort, distention, loose stool and diarrhea and is spiking fever. The patient is suspected to have C. difficile colitis and has been admitted accordingly. The patient presented to the emergency department with the above mentioned problems. In addition to the above, the patient has history of metastatic Stage IV lung cancer which his non-small cell cancer. For details, please refer to oncology unit. The patient for a short period of time was in hospice as well. Past medical history is significant for metastatic Stage IV lung cancer, history of radiation and chemotherapy, history of pneumothorax, lung cancer. Past surgical history is appendectomy, breast surgery, history of bilateral mastectomy, hysterectomy, tonsillectomy. ALLERGIES INCLUDE MORPHINE. Medications at home include: 1. Xanax 0.5 t.i.d. as needed. 2. Tylenol with codeine. 3. Albuterol HFA two puffs four times a day. 4. Albuterol nebulizer four times a day. 5. Dexamethasone 2 mg daily. Review of systems otherwise unremarkable and noncontributory. WORKING FOREM[employer]: Denies any seizure, loss of consciousness but does have generalized weakness. Cardiorespiratory: Denies any chest pain: The patient had a CT scan done two days prior which has been reviewed. Overall, no significant change is present. Significant lung collapse volume loss present noted on the right side. Abdomen: GI: Complaining of distention, diarrhea as dictated above. Musculoskeletal and neurological otherwise unremarkable and noncontributory. On examination, most recent vitals include: Blood pressure 120/67, respiratory rate 16, pulse 82, temperature 98, saturation 95% on room air. HEENT: Atraumatic, Normocephalic. Pharynx is clear. Narrow pharyngeal opening is present. Neck is supple without lymphadenopathy. Poor air entry is present on the right side. Improved air entry on the right left side. Abdomen is distended but soft. Hyperactive bowel sounds. Extremities +1 peripheral pulses. Neurological examination awake. No focal deficits. IMPRESSION: 1. Sepsis associated with C. difficile colitis. 2. Volume loss related to lung cancer, status post chemo and radiation therapy , overall not much change, Stage IV. 3. Severe chronic obstructive pulmonary disease. 4. Generalized weakness, medical debility and protein calorie malnourishment. 5. Clostridium difficile positive. 6. Hyponatremia. 7. Hypokalemia. PLAN: Replace electrolytes. Initiate the patient on Vancomycin and Flagyl. Continue gentle hydration. We will hold on aggressive antibiotics for pneumonia , doubt that being an issue. Follow clinical course closely. Further recommendations pending. Plan of care as per clinical response of the patient. MTDD
[2017-04-27 08:41] VITALS: BP 133/80; PULSE 96; RESP 20
[2017-04-27] MEDS: HEPARIN SODIUM,PORCINE 5,000 UNIT/ML 1 ML VIAL SQ SCH (09:07)
[2017-04-27] MEDS: FAMOTIDINE 20 MG TAB PO SCH (09:07)
[2017-04-27] MEDS: metroNIDAZOLE 500 MG TAB PO SCH (09:07)
[2017-04-27] MEDS: DEXAMETHASONE 2 MG TAB PO SCH (09:07)
[2017-04-27] MEDS ORDERED: VANCOMYCIN TROUGH DUE 1 EACH MISC MISCELLANE ONE (11:00)
[2017-04-27 11:25] LABS: Basophils % (A) 0 %; CH 30.5; CHCM 32.6; Eosinophils # (A) 0.2 k/uL (0-0.7); Eosinophils % (A) 2 %; HCT 37.1 % (34.0-46.0); HDW 2.52; HGB 11.8 gm/dL (11.4-16.0); Luc # (Auto) 0.13; Luc % (Auto) 1; Lymphocytes # (A) 0.3 k/uL (1.0-4.8); Lymphocytes % (A) 3 %; MCHC 31.8 g/dL (31.0-37.0); MCV 94.2 fL (80.0-100.0); Mean Platelet Volume 7.1; Monocytes # (A) 0.4 k/uL (0-1.0); Monocytes % (A) 3 %; Neutrophils # (A) 11.2 k/uL (1.3-7.7); Neutrophils % (A) 91 %; RBC 3.94 m/uL (3.80-5.40); RDW 15.7 % (11.5-15.5); WBC 12.3 k/uL (3.8-10.6); WBC (Perox) 11.82
[2017-04-27 11:41] LABS: ALT 27 U/L (9-52); AST 19 U/L (14-36); Alkaline Phosphatase 107 U/L (38-126); Anion Gap 12 mmol/L; Blood Urea Nitrogen 12 mg/dL (7-17); Calcium 9.4 mg/dL (8.4-10.2); Carbon Dioxide 19 mmol/L (22-30); Chloride 107 mmol/L (98-107); Glucose 116 mg/dL (74-99); Non-African American GFR(MDRD) 55 (>60 ml/min/1.73 sqM); Potassium 4.2 mmol/L (3.5-5.1); Sodium 138 mmol/L (137-145); Total Bilirubin 0.6 mg/dL (0.2-1.3); Total Protein 6.4 g/dL (6.3-8.2)
[2017-04-27] MEDS: VANCOMYCIN 1,000 MG in SODIUM CHLORIDE 0.9% 250 ML IVPB SCH (12:14)
[2017-04-27 13:24] LABS: Appearance,Urine Clear (Clear); Bilirubin,Urine Negative (Negative); Glucose,Urine (UA) Negative (Negative); Ketones,Urine Trace (Negative); Leukocyte Esterase,Urine Trace (Negative); Nitrite,Urine Negative (Negative); PH, Urine 5.5 (5.0-8.0); Particle Count 1629; Protein,Urine Negative (Negative); RBC,Urine 2 /hpf (0-5); Specific Gravity,Urine 1.018 (1.001-1.035); Squamous Epithelial Cell,Urine <1 /hpf (0-4); UA Billing (MACRO vs. MICRO) MICRO; Urobilinogen,Urine <2.0 mg/dL (<2.0); WBC,Urine 2 /hpf (0-5)
--- NOTE | 2017-04-27 13:53 | P.PN ---
Subjective Principal diagnosis: Patient seen and evaluated examined during the rounds she has a history of lung cancer admitted to the hospital with fever and diarrhea suspected to have C. 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 She presented with progressive cough and dyspnea for about 4 months, CXR on 11/01/15 was suspicious for RUL lung mass, CT chest 11/11/15 revealed a large RUL perihilar mass extending from the hilum to pleural surface,8.3cm x 9.1cm and small non specific 4-7mm scattered left lung nodules, bronch on showed collapse of RUL, path-adenocarcinoma. Staging PET/CT suspicious uptake noted in aforementioned areas, MRI brain negative for mets, , EGFR/ALK/ROS-1 mutation were negative. Pt was not felt to be surgical candidate due to tumor extension. Concurrent chemo/XRT started 01/04/16. Pt had drug changes, delay in treatment due to side effects and weakness, completed 4 cycles and radiation therapy completed on 02/21/16. Treatment f/u CT chest March 2016 revealed cavitary changes in RUL mass, no progression. Monitoring CT chest Jun 2016 revealed stable RUL cavitary lesions, increase in size of multiple small RONAK nodules and new nodule in left lung, PET positive for disease progression. She started nivolumab, In November CT was stable. Late November pt had c/o dizziness, multiple brain lesions found. Treatment was held and she completed whole brain radiation December 2016 and soon after resumed nivolumab. Treatment f/u brain MRI 02/07/17 revealed improvement of brain metastasis. Pt continued on treatment, last dose was on 03/16, treatment f/u CT chest on 03/[address] Bain met with pt and on 03/30 and referral at that time was made to hospice. Patient seen and evaluated examined doing well her diarrhea is improved for shortness better overall stablesignificant desaturation has been noted no plans for any aggressive intervention for her volume loss on the right side Objective - Vital Signs Vital signs: Vital Signs Temp 97.8 F 04/27/17 07:00 Pulse 96 04/27/17 07:00 Resp 20 04/27/17 07:00 BP 133/80 04/27/17 07:00 Pulse Ox 95 04/27/17 07:00 Intake & Output 04/26/17 04/27/17 04/27/17 18:59 06:59 18:59 Intake Total 352.1 Output Total 2 Balance 350.1 Intake: Intake, IV Titration 32.1 Amount Piperacillin-Tazobactam 3 32.1 .375 gm In Dextrose/Water 1 50ml.bag @ 12.5 mls/hr IVPB Q8H [facility] Rx#: [id number] Oral 320 Output: Stool 2 Other: # Voids 2 1 - Exam - Constitutional General appearance: average body habitus, cooperative, no acute distress - EENT dry mouth, scant thrush Eyes: anicteric sclerae, EOMI, PERRLA, normal appearance ENT: thrush - Neck Neck: no lymphadenopathy - Respiratory Respiratory: bilateral: diminished - Cardiovascular Rhythm: regular Heart sounds: normal: S1, S2 Abnormal Heart Sounds: no systolic murmur, no diastolic murmur, no rub, no S3 Gallop, no S4 Gallop, no click, no other leg Peripheral Edema: bilateral: None - Gastrointestinal General gastrointestinal: no absent bowel sounds, no decreased bowel sounds, no distended, no hepatomegaly, no hyperactive bowel sounds, normal bowel sounds, no organomegaly, no rigid, no scaphoid, soft, no splenomegaly, no tenderness, no umbilical hernia, no ventral hernia Localized gastrointestinal: tender: diffuse (mild) - Integumentary Integumentary: normal - Neurologic Neurologic: CNII-XII intact - Musculoskeletal Musculoskeletal: generalized weakness, strength equal bilaterally - Psychiatric Psychiatric: A&O x's 3, appropriate affect, intact judgment & insight - Labs CBC & Chem 7: 04/27/17 10:57 04/27/17 10:57 Labs: Abnormal Lab Results - Last 24 Hours (Table) 04/27/17 04/27/17 04/27/17 Range/Units 10:57 10:57 13:05 WBC 12.3 H (3.8-10.6) k/uL RDW 15.7 H (11.5-15.5) % Plt Count 481 H (150-450) k/uL Neutrophils # 11.2 H (1.3-7.7) k/uL Lymphocytes # 0.3 L (1.0-4.8) k/uL Carbon Dioxide 19 L (22-30) mmol/L Glucose 116 H (74-99) mg/dL Urine Ketones Trace H (Negative) Ur Leukocyte Esterase Trace H (Negative) Microbiology - Last 24 Hours (Table) 04/24/17 11:56 Urine Culture - Final Urine,Voided Enterococcus faecalis 04/24/17 11:45 Blood Culture - Preliminary Blood No Growth after 48 hours Assessment and Plan Plan: Sirs-like process likely related to C. difficile colitis Group D enterococcus urinary tract infection Stage IV non-small cell lung cancer with metastases to the brain and significant volume loss on the right side Severe COPD Acute on chronic hypoxic respiratory failure Generalized weakness [facility] Kellee Simms cachexia and protein calorie malnourishment Plan agree with broad-spectrum antibiotics in the form of Zosyn and oral vancomycin which is for Enterobacter and C. difficile respectively, we will add by mouth Flagyl as well, would continue gentle rehydration and electrolyte balance and replace potassium Time with Patient: Greater than 30
--- NOTE | 2017-04-28 08:38 | CONS ---
DATE OF CONSULTATION: 04/27/2017 REASON FOR CONSULTATION: C. dif colitis and Enterococcus urinary tract infection, discharge antibiotic recommendation. HISTORY OF PRESENT ILLNESS: The patient is a 77-year-old female with a past medical history significant for non-small cell cancer of the lung for which the patient has been on chemotherapy since March. Apparently, the patient on follow-up CT scan noticed to have progression of the disease. Hence, Dr. Bain referred him to Hospice care. The patient presented to the [facility] ER with chief complaint of a fever and diarrhea. The patient has diarrhea that has been going on for almost three weeks now. The patient did have loose stool. No blood or mucous. Did have some crampy lower abdominal pain, 3 to 4 out of 10 and no radiation. Some nausea but no vomiting and did have a low grade fever for which the patient presented to the ER. The patient was evaluated by the ER physician. The patient did have a chest x-ray that was stable appearance of the chest with no acute finding. The patient did have a UA that was negative. The stool for C. dif was positive. The patient had been treated with Zosyn and Vancomycin with urine culture showing Enterococcus faecalis, 10 to 49,000 colonies. I was asked to see the patient for recommendations regarding discharge antibiotic therapy. REVIEW OF SYSTEMS: Constitutional: Positive for weakness and low grade fever. EYES: No complaint. HEENT: No complaint. Respiratory: Occasional cough. Cardiovascular: No complaint. : No complaint. Gastrointestinal: As per HPI. Musculoskeletal : No complaint. Integumentary: No complaint. Psychological: No complaint. Endocrine: No complaint. Neurological: No complaint. Past medical history significant for non-small cell lung cancer, pneumonia, breast cancer. Past surgical history: Appendectomy, breast surgery, hysterectomy, tonsillectomy, bilateral mastectomy, breast reconstruction. SOCIAL HISTORY: Remote history of smoking. No drinking or drug use. FAMILY HISTORY: Father with history of coronary artery disease with triple bypass and pacemaker placement. Mother with cervical and breast cancer. Daughter with cervical cancer. ALLERGIES: MORPHINE. Medications include the patient is currently on: 1. Vancomycin 250 mg po q6 hours. 2. IV Vancomycin. 3. Narcan. 4. Flagyl. 5. Pepcid. 6. Xanax. 7. Tylenol. On examination, blood pressure is 133/80 with a pulse of 96. Temperature 97.9. She is 95% on room air. General description is an elderly female lying in bed, in no distress. No tachypnea or accessory muscles of respiration use. HEENT: Examination shows no light pallor and no scleral icterus. Oral mucosa membranes moist. Some thrush. NECK: Trachea is central. No thyromegaly. LUNGS: Unlabored breathing. Clear to auscultation anteriorly. No wheeze or crackles. HEART: S1, S2 regular rate and rhythm. ABDOMEN: Soft. No tenderness. No guarding and no rigidity. EXTREMITIES: No edema of the feet. SKIN: No rash or mass palpable. NEUROLOGICALLY: The patient is awake, alert and oriented times three. Mood and affect normal. LABS: Hemoglobin 11.1, white count 12.3, BUN 12, creatinine 0.98. Stool for C. dif negative. UA was negative. Urine culture with low colony count. Blood cultures negative. Chest x-ray no acute infiltrate. DIAGNOSTIC IMPRESSION AND PLAN: 1. The patient admitted to the hospital with fever and diarrhea likely secondary to acute C. dif colitis. Clinically no other clear focus of infection. Chest x-ray without evidence of any pneumonia. The patient clinically ( ) and no evidence of clinical urinary tract infection. Urine cultures very low colony count with corresponding UA negative. More likely contamination. 2. Patient with mild oral thrush. PLAN: 1. Discontinue IV Vancomycin and Zosyn. 2. Recommend keeping the patient on Vancomycin po 250 q6 for two weeks. 3. Nystatin swish and swallow for the oral thrush for a week. 4. The patient clear to go from an ID standpoint once antibiotics are arranged with outpatient follow-up. CHERISE
--- NOTE | 2017-05-01 11:21 | CDI ---
In responding to this query, please exercise your independent professional judgment. The [facility] Coding Staff and Clinical Documentation Specialists appreciate your assistance in clarifying documentation, maintaining compliance with coding guidelines, accurately documenting patients condition and capturing severity of illness. The fact that a question is asked does not imply that any particular answer is desired or expected. Communication forms are a method of clarifying documentation and are not made part of the Legal Health Record. Thank you in advance for your clarification. Last Revision, July 2015 Jose Naik [address] [facility] [place] [address] Documentation Clarification Form Date: 05/01/2017 11:09:00 AM From: Rhona Schmitt Admit Date: 04/24/2017 1:42:00 PM Patient Name: Evon Toribio Visit Number: [id number] Discharge Date: 04/27/17 Dr. Salvador Holt/ Hanane Maradiaga Conflicting documentation has been found in the medical record. Per consult by Dr. Tushar Storm the patient has sepsis associated with C. difficile colitis. History/Risk Factors: lung cancer stage IV, severe COPD Clinical Indicators: WBC 12.1, Neutrophils 11.1, lactic acid 2.6, pulse 100 Treatment: IV Zosyn, Vancomycin In your opinion what is the most clinically appropriate diagnosis for this patient? Sepsis OTHER explanation of clinical findings Unable to determine (no explanation for clinical findings) Please document addendum in your discharge summary in order to capture severity of illness and risk of mortality. FYI: Press F11 to launch patient chart. If you have a question about this query, please contact Wendi Garnett, R D Manager, Jose Naik at [phone] between 8am and 5pm. CHERISE
== END 2017-04-27 14:33 | disposition home or self-care (01) | DRG 190 ==
LOC: EC 10:45 → OBSVTOIN 13:42 → INTOOBSV 13:42 → 5ONC 13:42
PROVIDERS: ADMIT Family Medicine; ATTEND Family Medicine
DX: J44.0 Chronic obstructive pulmonary disease with (acute) lower respiratory infection (principal); J18.9 Pneumonia, unspecified organism; J96.21 Acute and chronic respiratory failure with hypoxia; E46 Unspecified protein-calorie malnutrition; A04.7 Enterocolitis due to Clostridium difficile; B37.0 Candidal stomatitis; C79.31 Secondary malignant neoplasm of brain; E87.1 Hypo-osmolality and hyponatremia; C34.80 Malignant neoplasm of overlapping sites of unspecified bronchus and lung; N39.0 Urinary tract infection, site not specified; J98.19 Other pulmonary collapse; E87.6 Hypokalemia; B95.2 Enterococcus as the cause of diseases classified elsewhere; J44.1 Chronic obstructive pulmonary disease with (acute) exacerbation; F32.9 Major depressive disorder, single episode, unspecified; F41.9 Anxiety disorder, unspecified; Y95 Nosocomial condition; Z85.3 Personal history of malignant neoplasm of breast; Z87.891 Personal history of nicotine dependence; Z90.13 Acquired absence of bilateral breasts and nipples; Z90.710 Acquired absence of both cervix and uterus; Z92.3 Personal history of irradiation; Z92.21 Personal history of antineoplastic chemotherapy; Z88.5 Allergy status to narcotic agent
CPT/HCPCS: 36415; 71020; 80048; 80053; 80202; 81001; 83605; 85025; 85027; 87040; 87077; 87086; 87186; 87324; 94640; 94760; 96365; 96366; 99285